=== PATIENT | female | born 1995 | race Caucasian/White ===

== ENCOUNTER 2024-05-31 14:25 | Outpatient (CLI) | payer OTHER, SELFPAY ==
--- OUTSIDE RECORDS SUMMARY | 2024-05-31 14:28 | XMS_ITS | Encounter Summary ---
Author Organization [facility] Address [address] [place] [address] Care Team Providers Care Stitcher Special Machine Name Role Phone Unavailable Primary Care Provider Unavailabl e Encounter Details Date Type Department Care Team (Late st Contact Info) Description 05/10/2024 Clinical Communication Department of Obstetrics and Gynecology in [place], [place] [address] [place] [address] Prescheduling, Provider Social History Tobacco Use Types Packs/Day Years Used Date Smoking Tobacco: Never Smokeless Tobacco: Never Dental Answer Date Recorded Dental: Regular Dentist Unknown 07/05/20 23 Comments No Sex and Gender Information Value Date Recorded Sex Assigned at Female 05/18/2024 8:53 PM CDT Legal Sex Female 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
--- OUTSIDE RECORDS SUMMARY | 2024-05-31 14:28 | XMS_ITS | Referral Summary ---
Author Organization [facility] Address [address] [place] [address] Care Team Providers Care Shared Services And Outsourcing Manager Name Role Phone Unavailable Primary Care Provider Unavailabl e Source Comments Patient records contain information from all sites at [facility]. For routine questions regarding patient records, call [phone] during business hours, M-F 8:00 AM - 5:00 PM Central Time. Record requests for emergency care only can be directed to [phone] at any time.[facility] Encounters Date Type Department Care Team Description 05/25/2024 11:00 AM CDT Routine Department of Obstetrics and Gynecology in [place], [place] [address] [place] [phone] Katty Lawrence M.D., Ph.D. Family History Congenital Heart Disease (Primary Dx); Abnormal Ultrasound Placental Low Lying 05/25/2024 9:33 AM CDT - 05/25/2024 11:59 PM CDT Hospital Encounter Department of Obstetrics and Gynecology in [place], [place] [address] [place] [phone] Jasmeet Oliver M.D. Supervision Of Other High Risk Pregnancies Unspecified Trimester (HCC) Discharge Disposition: Home or Self Care 05/11/2024 3:00 PM CDT Nurse Only Department of Obstetrics and Gynecology in [place], [place] [address] [place] [phone] Adrianna Pedraza R.N. 05/10/2024 Clinical Communication Department of Obstetrics and Gynecology in [place], [place] [address] [place] [phone] Prescheduling, Provider from Last 3 Months Allergies Active Allergy Reactions Criticality Noted Date Comments Codeine Other (see comments),Palpitations Medium 06/25/2022 high heart rate and passed out Medications omega-3 fatty acids 1,000 mg capsule Take 1,000 mg by mouth daily. Active [id number] [id number] 27 mg iron- 1 mg tablet Take 2 tablets by mouth daily. Active Vienva 0.1-20 mg-mcg per tablet Take 1 tablet by mouth daily. 05/25/20 Discontinued Social History Tobacco Use Types Packs/Day Years Used Date Smoking Tobacco: Never Smokeless Tobacco: Never Tobacco Cessation:Counseling Given: Not Answered Alcohol Use Standard Drinks/Week Comments Not Currently 0 (1 standard drink = 0.6 oz pur e alcohol) [facility] Utilities Answer Date Recorded In the past 12 months has e [employer], gas, oil, or water [employer] threatened to shut off services in your home? No 05/18/2024 Exercise Vital Sign Answer Date Recorde d On average, how many days pe r week do you engage in moderate to strenuous exercise (like a brisk walk)? 7 days 05/18/2024 On average, how many minutes do you engage in exercise at this level? 20 min 05/18/2024 Hunger Vital Sign Answer Date Recorded Within the past 12 months, y ou worried that your food would run out before you got the money to buy more. Never true 05/18/20 Within the past 12 months, t he food you bought just didn't last and you didn't have money to get more. Never true 05/18/2024 PRAPARE - Transportation Answer Date Re corded In the past 12 months, has l ack of transportation kept you from medical appointments or from getting medications? No 05/02 In the past 12 months, has l ack of transportation kept you from meetings, work, or from getting things needed for daily living? No 05/18/2024 Nutrition Answer Date Recorded On average, how many serving s of fruits and vegetables do you eat per day (serving size is equal to 1 cup or approximately the size of a tennis ball)? 0-2 05/18/2024 Dental Answer Date Recorded Dental: Regular Dentist No 05/18/20 Employment Answer Date Recorded Employment status Unemployed/not in th e paid workforce and NOT seeking employment 05/18/2024 Housing Stability Answer Date Recorded What is your living situation today? 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 Gender Identity Female 05/18/2024 8:53 PM CDT Sexual Orientation Straight 05/18/2024 8: 53 PM CDT Last Filed Vital Signs Vital Sign Reading Time Taken Comments Blood Pressure 128/80 05/25/2024 11:02 AM CDT Pulse 94 05/25/2024 11:02 AM CDT Temperature 36.3 ??C (97.3 ??F) 05/25/2024 11:02 AM C DT Respiratory Rate 16 07/05/2023 9:28 AM TRAINING AND DOCUMENTATION SPECIALIST Oxygen Saturation 99% 05/25/2024 11:02 AM CDT Inhaled Oxygen Concentration - - Weight 77 kg (169 lb 12.1 oz) 05/25/2024 11:02 A M CDT Height - - Body Mass Index - - Plan of Treatment Not on file Procedures Procedure Name Priority Date/Time Associated Diagnosis Comments US OB ADVANCED LEVEL PERAZA RAD - Routine (most inpatients and all outpatients) 05/25/2024 11:03 AM CDT Supervision Of Other High Risk Pregnancies Unspecified Trimester (HCC) from Last 3 Months Results * US OB Advanced Level Peraza (05/25/2024 11:03 AM CDT) Anatomical Region Laterality Modality Body, Ultrasound OB RST LOS, Ultrasound ARZ LOS N/A Ultrasound Narrative 05/25/2024 11:27 AM CDT CLEMENTINE HARPER OB Exam, 05/25/2024 EXAM INFORMATION Patient Name: ??CLEMENTINE HARPER : ??1995 Age: ??29 yrs Sex: ??Female Ref Phys: ??JASMEET OLIVER Exam Date: 05/25/2024 Procedure: US OB ADVANCED LEVEL PERAZA Exam Site: [facility] OB #1 Plurality: 1 OBHx: [G:(1)] ?F Trm:() Pre:() C-Sec:() Ab-I:() Ab-S:() Ect:() Multi:() Teagan:() INDICATIONS FOR SONOGRAPHY Anatomic Survey family Hx congenital heart disease IMPRESSION 1. Peraza . Bilateral choroid plexus cyst. No other abnormalities identified. Specifically, the hands were well seen and normal. Normal appearance of the heart. In the setting of a low risk NIPT, this is likely a normal variant and no specific follow-up is recommended. 2. Posterior low-lying placenta 1.1 cm from the internal os. Follow-up including transvaginal imaging is recommended between 28 and 32 weeks gestation. MEASUREMENTS ??steff ??wks [+/-] (Range) % ?? BPD: 4.58 cm ?? 19w6d ??[+/-1.73] ??(3.89 - 5.07) 62% FL: ??2.96 cm ?? 19w1d ??[+/-1.80] ??(2.56 - 3.73) 27% HC: ??16.56 cm ?? 19w2d ??[+/-1.48] ??(15.18 - 19.10) 28% AC: ??14.57 cm ?? 19w6d ??[+/-2.06] ??(11.76 - 17.01) 56% HL: ??2.85 cm ?? 19w0d ? (2.41 - 3.41) 44% TCD: 2.05 cm ?? 20w2d ??[+/-1.80] ??(1.80 - 2.20) 67% CI: ??79.1 ?(73.14 - 85.32) 49% NF: ??3.25 mm ? Cisterna Magna: 0.45 cm ? RATIOS ??(Range) % ?? HC/AC: 1.14 ?(1.09 - 1.26) 28% ?? FL/BPD: 0.65 ? FL/AC: 0.20 ? LONG BONES SURVEY ??cm ??wks [+/-] (Range) % ?? Humerus: 2.85 cm ?? 19w0d ? (2.41 - 3.41) 44% Ulna: ?? 2.59 cm ? Radius: 2.39 cm ? Femur: 2.96 cm ?? 19w1d ??[+/-1.80] ??(2.56 - 3.73) 27% Tibia: 2.69 cm ? Fibula: 2.61 cm ? COMPUTATIONS GA: ?? 19w4d [+/-1.40] Method: ??MARIAH MARIAH: ??10/15/2024 Sono GA: ??19w2d [+/-1.40] Method: ?? BPD, HC, AC, FL Weight: ??323 gms. ??0 lb 11 oz. ??68% Method: ??BPD, HC, AC, FL OBSERVATIONS Amniotic Fluid Fluid Volume: ??Normal Placenta: ??Placenta is Posterior. ??There is no evidence of a placenta previa. Presentation: ?Transverse head maternal right Size: ?Normal for dates Growth: ??Within normal limits. FHR: ??147 bpm Sex: ??Male ANATOMY Normal: Sag and Trans Cervical spine, Sag and Trans Thoracic spine, Sag and Trans Lumbar spine, Sag and Trans Sacral spine, Cerebellum, Vermis, Cisterna magna, Cerebral ventricle, Nuchal thickness, CSP, Midline falx, Palate, Maxilla, Mandible, Tongue, 4 chamber heart, Interventricular septum, Situs, RVOT, LVOT, 3VV, 3VT, Aortic arch, Ductal arch, SVC/IVC, Pulmonary veins, Chest/Heart/lungs, Diaphragm, Anterior abdominal wall, Abdominal cord insertion, Placental cord insert , 3 vessel cord, Stomach, Kidneys (coronal and trans), Renal arteries, Bladder, Face, Upper lip/nose, Profile/Nasal Bone, Orbits/lens, Upper extremities, Lower extremities, Hands, Feet See Comment: Choroid plexus COMMENTS Transabdominal ultrasound was performed. Anatomy Scan Peraza . ??The placenta is without evidence of previa. The cervix is long and closed. The amniotic fluid appears normal. The adnexae appear normal. NIPT -low risk Bilateral BOILER MECHANIC's (right 6.8 x 5.3mm) Posterior low lying placenta 1.12cm from the internal os of the cervix. Preliminary Read by Jaimee Pettit, R.Rita.M.S. on 05/25/2024 11:01:14 AM. Cellulose Insulation Helper: ??Jaimee Pettit, Yasir.M.S. Thank You For This Referral Procedure Note Daisha Moreno M.D. - 05/25/2024 CLEMENTINE HARPER OB Exam, 05/25/2024 EXAM INFORMATION Patient Name: CLEMENTINE HARPER : 1995 Age: 29 yrs Sex: Female Ref Phys: JASMEET OLIVER Exam Date: 05/25/2024 Procedure: US OB ADVANCED LEVEL PERAZA Exam Site: [facility] OB #1 Plurality: 1 OBHx: [G:(1)] F Trm:() Pre:() C-Sec:() Ab-I:() Ab-S:() Ect:() Multi:() Teagan:() INDICATIONS FOR SONOGRAPHY Anatomic Survey family Hx congenital heart disease IMPRESSION 1. Peraza . Bilateral choroid plexus cyst. No other fetalabnormalities identified. Specifically, the hands were well seen andnormal. Normal appearance of the heart. In the setting of a low risk NIPT,this is likely a normal variant and no specific follow-up is recommended. 2. Posterior low-lying placenta 1.1 cm from the internal os. Follow-upincluding transvaginal imaging is recommended between 28 and 32 weeksgestation. MEASUREMENTS steff wks [+/-] (Range) % BPD: 4.58 cm 19w6d [+/-1.73] (3.89 - 5.07) 62% FL: 2.96 cm 19w1d [+/-1.80] (2.56 - 3.73) 27% HC: 16.56 cm 19w2d [+/-1.48] (15.18 - 19.10) 28% AC: 14.57 cm 19w6d [+/-2.06] (11.76 - 17.01) 56% HL: 2.85 cm 19w0d (2.41 - 3.41) 44% TCD: 2.05 cm 20w2d [+/-1.80] (1.80 - 2.20) 67% CI: 79.1 (73.14 - 85.32) 49% NF: 3.25 mm Cisterna Magna: 0.45 cm RATIOS (Range) % HC/AC: 1.14 (1.09 - 1.26) 28% FL/BPD: 0.65 FL/AC: 0.20 LONG BONES SURVEY cm wks [+/-] (Range) % Humerus: 2.85 cm 19w0d (2.41 - 3.41) 44% Ulna: 2.59 cm Radius: 2.39 cm Femur: 2.96 cm 19w1d [+/-1.80] (2.56 - 3.73) 27% Tibia: 2.69 cm Fibula: 2.61 cm COMPUTATIONS GA: 19w4d [+/-1.40] Method: MARIAH MARIAH: 10/15/2024 Sono GA: 19w2d [+/-1.40] Method: BPD, HC, AC, FL Weight: 323 gms. 0 lb 11 oz. 68% Method: BPD, HC, AC, FL OBSERVATIONS Amniotic Fluid Fluid Volume: Normal Placenta: Placenta is Posterior. There is no evidence of a placentaprevia. Presentation: Transverse head maternal right Size: Normal for dates Growth: Within normal limits. FHR: 147 bpm Sex: Male ANATOMY Normal: Sag and Trans Cervical spine, Sag and Trans Thoracic spine, Sagand Trans Lumbar spine, Sag and Trans Sacral spine, Cerebellum, Vermis,Cisterna magna, Cerebral ventricle, Nuchal thickness, CSP, Midline falx,Palate, Maxilla, Mandible, Tongue, 4 chamber heart, Interventricular septum, Situs, RVOT, LVOT, 3VV, 3VT,Aortic arch, Ductal arch, SVC/IVC, Pulmonary veins, Chest/Heart/lungs,Diaphragm, Anterior abdominal wall, Abdominal cord insertion, Placentalcord insert , 3 vessel cord, Stomach, Kidneys (coronal and trans), Renal arteries, Bladder, Face, Upperlip/nose, Profile/Nasal Bone, Orbits/lens, Upper extremities, Lowerextremities, Hands, Feet See Comment: Choroid plexus COMMENTS Transabdominal ultrasound was performed. Anatomy Scan Peraza . The placenta is without evidence of previa. Thecervix is long and closed. The amniotic fluid appears normal. The adnexaeappear normal. NIPT -low risk Bilateral BOILER MECHANIC's (right 6.8 x 5.3mm) Posterior low lying placenta 1.12cm from the internal os of thecervix. Preliminary Read by Jaimee Pettit R.D.M.S. on 05/25/2024 11:01:14AM. Cellulose Insulation Helper: Jaimee Pettit R.D.MaRhulSRahul Thank You For This Referral us Jasmeet Oliver M.D. IMG OB US PROCEDURES Final Result from Last 3 Months Insurance [id number] [facility] [id number] [place] [address]
--- OUTSIDE RECORDS SUMMARY | 2024-05-31 14:28 | XMS_ITS | Encounter Summary ---
Author Organization [facility] Address [address] [place] [address] Care Team Providers Care Welder Fabricator Name Role Phone Unavailable Primary Care Provider Unavailabl e Reason for Referral * Outpatient (Routine) - Authorized Specialty Diagnoses / Procedures Referred By Contac t Referred To Contact Diagnoses Supervision Of Other High Risk Pregnancies Unspecified Trimester (HCC) Procedures Echo Jasmeet Oliver M.D. [address] [place] [phone] Phone: tel: fax: [facility] Referral ID Status Reason Start Date Expiration Date V isits Requested Visits Authorized [id number] Authorized 05/11/2024 05/11/2025 1 1 * Outpatient (Routine) - Authorized Specialty Diagnoses / Procedures Referred By Ed gardner Referred To Contact Pediatric Cardiology Diagnoses Supervision Of Other High Risk Pregnancies Unspecified Trimester (HCC) Jasmeet Oliver M.D. [address] [place] [phone] Phone: tel: fax: [facility] Referral ID Status Reason Start Date Expiration Date V isits Requested Visits Authorized [id number] Authorized 05/11/2024 11/10/2025 1 1 Encounter Details Date Type Department Care Team (Late st Contact Info) Description 05/11/2024 3:00 PM CDT Nurse Only Department of Obstetrics and Gynecology in [place], [place] [address] [place] [phone] Adrianna Pedraza R.N. 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 - 05/11/2024 3:00 PM CDT A chart review was completed with Clementine Mckinnon. She is being referred by Dr. Fernandez in [place] for katiuska heart maternal murmur cousin with Behzad. Using the [facility] Indication to be Seen guideline, the timeframe we would like her to be seen is between 05/22 and 05/29. MFM pre-visit orders: Additional appointments were ordered as follows: Adv level and Echo Peds Card. These recommendations were discussed with the patient. Clementine Mckinnon was informed that the [facility] team will be reaching out to schedule her appointments inthe near future. She verbalized understanding and denied any further questions. Adrianna Pedraza R.N. documented in this encounter Plan of Treatment Scheduled Orders Name Type Priority Associated Diagnoses Orde r Schedule Echo Echocardiography Routine Supervision Of Other High Risk Pregnancies Unspecified Trimester (HCC) Expected: 06/15/2024, Expires: 08/11/2025 Scheduled Referrals Name Type Priority Associated Diagnoses Orde r Schedule Pediatric Cardiology - clinic consult (clinic) Outpatient Referral Routine Supervision Of Other High Risk Pregnancies Unspecified Trimester (HCC) Expected: 06/15/2024, Expires: 08/11/2025 documented as of this encounter Results * US OB Advanced Level Peraza (05/25/2024 11:03 AM CDT) Anatomical Region Laterality Modality Body, Ultrasound OB RST LOS, Ultrasound ARZ LOS N/A Ultrasound Narrative 05/25/2024 11:27 AM CDT CLEMENTINE HARPER OB Exam, 05/25/2024 EXAM INFORMATION Patient Name: ??CLEMENTINE HARPER : ??1995 Age: ??29 yrs Sex: ??Female Ref Phys: ??JASMEET OLIVER Exam Date: 05/25/2024 Procedure: US OB ADVANCED LEVEL PERAZA Exam Site: [facility] OB #1 Plurality: 1 OBHx: [G:(1)] ?F [...] adnexae appear normal. NIPT -low risk Bilateral GENERAL FARMER's (right 6.8 x 5.3mm) Posterior low lying placenta 1.12cm from the internal os of the cervix. Preliminary Read by Jaimee Pettit, R.D.M.S. on 05/25/2024 11:01:14 AM. License Clerk: ??Jaimee Pettit, RAshley.M.S. Thank You For This Referral Procedure Note Daisha Moreno M.D. - 05/25/2024 CLEMENTINE HARPER OB Exam, 05/25/2024 EXAM INFORMATION Patient Name: CLEMENTINE HARPER : 1995 Age: 29 yrs Sex: Female Ref Phys: JASMEET OLIVER Exam Date: 05/25/2024 Procedure: US OB ADVANCED LEVEL PERAZA Exam Site: [facility] OB #1 Plurality: 1 OBHx: [G:(1)] F [...] The adnexaeappear normal. NIPT -low risk Bilateral GENERAL FARMER's (right 6.8 x 5.3mm) Posterior low lying placenta 1.12cm from the internal os of thecervix. Preliminary Read by Jaimee Pettit R.D.M.S. on 05/25/2024 11:01:14AM. License Clerk: Jaimee Pettit R.D.M.S. Thank You For This Referral us Jasmeet Oliver M.D. IMG OB US PROCEDURES Final Result documented in this encounter Visit Diagnoses Diagnosis Supervision Of Other High Risk Pregnancies Unspecified Trimester (HCC)- Primary Supervision Of Other High Risk Pregnancies Unspecified Trimester (HCC) documented in this encounter
--- OUTSIDE RECORDS SUMMARY | 2024-05-31 14:28 | XMS_ITS | Encounter Summary ---
Author Organization [facility] Address [address] [place] [address] Care Team Providers Care Surfacer Name Role Phone Unavailable Primary Care Provider Unavailabl e Reason for Visit * Reason Comments Routine Visit MFM * Appointment Request (Routine) - Authorized Specialty Diagnoses / Procedures Referred By Contlinda t Referred To Contact Maternal and Medicine Diagnoses Abnormality Affecting Management Rossana Fernandez, P.A.-C. [address] [place] [address] Phone: tel: fax: Referral ID Status Reason Start Date Expiration Date V isits Requested Visits Authorized [id number] Authorized 05/10/2024 05/10/2025 2 2 Encounter Details Date Type Department Care Team (Latest Contact Info) Description 05/25/2024 11:00 AM CDT Routine Department of Obstetrics and Gynecology in [place], [place] [address] [place] [phone] Katty Lawrence M.D., Ph.D. [address] [place] [address] Family History Congenital Heart Disease (Primary Dx); Abnormal Ultrasound Placental Low Lying Social History Tobacco Use Types Packs/Day Years Used Date Smoking Tobacco: Never Smokeless Tobacco: Never Alcohol Use Standard Drinks/Week Comments Not Currently 0 (1 standard drink = 0.6 oz pur e alcohol) [facility] Utilities Answer Date Recorded In the past 12 months has [employer], gas, oil, or water company threatened to shut off services in your [...] your living situation today? 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 - 05/25/2024 11:00 AM CDT MATERNAL MEDICINE CONSULTATION SUBJECTIVE Clementine Polanco is a 29 y.o. at 19w4d who presents for MFM consultation secondary to history ofcongenital heart disease. Patient's last menstrual period was 01/09/2024. Estimated Date of Delivery: 10/15/24 by LMP consistent with 7 week ultrasound. She is referred by Rossana Fernandez P.A.-C. Clementine presents today with her , Reed. They recently located to [place] from [place]. They are receiving care in [place]. BRIEF HISTORY Clementine reports that she had a heart murmur diagnosed when she was a child and was followed untilshe was around 12 years old when she was told that it normalized. Sounds like possible small VSD orPFO that closed spontaneously and was followed by reportedly [place]. Because of this history, she was referred for MFM consultation and is scheduled for a echo in a couple weeks. She has had cell free DNA screening performed, which resulted as low-risk. She had a first trimester ultrasound that showed a normal nuchal translucency (1.3 mm at 12w5d). Complicated By: Maternal heart issue ? Now resolved Fetus: bilateral choroid plexus cysts Low-lying placenta (at 19w4d); 1.2 cm from internal os OBJECTIVE Vitals: 05/25/24 1102 BP: 128/80 Pulse: 94 Temp: 36.3 ??C SpO2: 99% Ultrasound Today: [place] . Bilateral choroid plexus cyst. No other abnormalities identified. Specifically, the hands were well seen and normal. Normal appearance of the heart. In the setting of a lowrisk NIPT, this is likely a normal variant and no specific follow-up is recommended. Posterior low-lying placenta 1.1 cm from the internal os. Follow-up including transvaginal imaging is recommended between 28 and 32 weeks gestation. ASSESSMENT / PLAN Discussion Today: Today we reviewed her history, the ultrasound findings, and the recommended plan of care. Specific discussion about: Choroid Plexus Cysts: The choroid plexus, located in the lateral ventricle of the brain, is the area of the brain that makes cerebrospinal fluid. A choroid plexus cyst is a small fluid-filled structure within the choroid that can be seen on ultrasound. Choroid plexus cysts may be single, multiple, unilateral or bilateral. An isolated choroid plexus cyst (s) can be identified on routine ultrasound and are seen in 1-2% of normal fetuses in the second trimester, equally in males and females. More than 90% resolve, typically by 28 weeks. A choroid plexus cyst is not considered a structural of functional brain abnormality. Studies show no differences in neurodevelopmental outcomes in eup loid children who had a diagnosis of choroid plexus cysts. Choroid plexus cysts may be associated with trisomy 18. They are seen in 30-50% of fetuses with trisomy 18. However, multiple structural anomalies are also typically seen (heart defects, clenched hands, talipes deformity of the feet, growth restriction, and polyhydramnios). When other abnormalitiesare seen, the probability of trisomy 18 increases to approximately 37%. When isolated, the likelihood of trisomy 18 is extremely low. In women who screen negative for trisomy 18 and in whom no other structural anomalies are seen on adetailed ultrasound, no additional genetic testing is required. Follow-up ultrasounds are also not indicated. Low Lying Placenta: A low-lying placenta refers to a placental edge less than 2 cm from the internal cervical os. This becomes an issue if near delivery time. If the placenta is low-lying, studies have suggested that the distance from the os is an important predictor of a successful vaginal delivery. If 10 mm or less, there is a higher risk of vaginal bleeding leading to delivery. If betw een 10-20mm, the success of a vaginal delivery is higher. At this point in the , I am not concerned about the low-lying placenta because it will likely resolve. We also discussed ???pelvic rest?? , which I do not necessarily think is necessary at this time. The usual recommendation is to re-assess the placental location around 28-32 weeks GA. Possible Maternal Congenital Heart Abnormality: Because we are uncertain about her diagnosis, and it appeared to spontaneously resolve, I do not think a echo is necessary - particularly with normal cardiac views on advanced level ultrasound today. I offered to have the echo cancelled, which they did opt for. Plan/Recommendations In Addition to Routine Care: History of maternal murmur: Continue to attempt to retrieve records from [place] Consider maternal echocardiogram (not urgent) echo not necessary (since maternal issue does not seem significant) - normal advanced level today Low-Lying Placenta: Repeat ultrasound to assess placental location around 32 weeks (earlier if needed). Can be done locally Care: Continue care in [place] Return to [facility] as needed Patient was seen with Irma Herring RN. Approximately 40 minutes were spent in the care of the patient. Katty Lawrence M.D., Ph.D. Maternal- Medicine documented in this encounter Plan of Treatment Not on file documented as of this encounter Visit Diagnoses Diagnosis Family History Congenital Heart Disease- Primary Abnormal Ultrasound Placental Low Lying documented in this encounter
--- OUTSIDE RECORDS SUMMARY | 2024-05-31 14:28 | XMS_ITS | Clinical Summary ---
Author Organization [facility] Address [address] [place] [address] Care Team Providers Care Oracle Dba Name Role Phone Unavailable Primary Care Provider Unavailabl e Source Comments Patient records contain information from all sites at [facility]. For routine questions regarding patient records, call [phone] during business hours, M-F 8:00 AM - 5:00 PM Central Time. Record requests for emergency care only can be directed to [phone] at any time.[facility] Allergies Active Allergy Reactions Criticality Noted Date Comments Codeine Other (see comments),Palpitations Medium 06/25/2022 high heart rate and passed out Medications omega-3 fatty acids 1,000 mg capsule Take 1,000 mg by mouth daily. Active [id number] n-FA 27 mg iron- 1 mg tablet Take 2 tablets by mouth daily. Active Vienva 0.1-20 mg-mcg per tablet Take 1 tablet by mouth daily. 05/25/20 Discontinued Encounters Date Type Department Care Team Description 05/25/2024 11:00 AM CDT Routine Department of Obstetrics and Gynecology in [place], [place] [address] [place] [address] Katty Lawrence M.D., Ph.D. Family History Congenital Heart Disease (Primary Dx); Abnormal Ultrasound Placental Low Lying 05/25/2024 9:33 AM CDT - 05/25/2024 11:59 PM CDT Hospital Encounter Department of Obstetrics and Gynecology in [place], [place] [address] [place] [address] Jasmeet Oliver M.D. Supervision Of Other High Risk Pregnancies Unspecified Trimester (HCC) Discharge Disposition: Home or Self Care 05/11/2024 3:00 PM CDT Nurse Only Department of Obstetrics and Gynecology in [place], [place] [address] [place] [address] Adrianna Pedraza R.N. 05/10/2024 Clinical Communication Department of Obstetrics and Gynecology in [place], [place] [address] [place] [address] Prescheduling, Provider from Last 3 Months Family History Medical History Relation Name Comments No Known Problems Brother Hypertension Father Cancer Maternal Grandfather Esophag eal and Colon GI problems Maternal Grandmother No Known Problems Mother Crohn disease Paternal Grandfather Depression Paternal Grandmother Suicide Relation Name Status Comments Brother Alive Father Alive Maternal Grandfather Maternal Grandmother Alive Mother Alive Paternal Grandfather Alive Paternal Grandmother Social History Tobacco Use Types Packs/Day Years Used Date Smoking Tobacco: Never Smokeless Tobacco: Never Tobacco Cessation:Counseling Given: Not Answered Alcohol Use Standard Drinks/Week Comments Not Currently 0 (1 standard drink = 0.6 oz pur e alcohol) [facility] [employer] Answer Date Recorded In the past 12 months has th e [employer], gas, oil, or water [employer] threatened to shut off services in your [...] money to buy more. Never true 05/18/20 24 Within the past 12 months, t he [...] Answer Date Recorded Employment status Unemployed/not in e paid workforce and NOT seeking employment 05/18/2024 Housing Stability Answer Date Recorded What is your living situation today? 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 Gender Identity Female 05/18/2024 8:53 PM CDT Sexual Orientation Straight 05/18/2024 8: 53 PM CDT Last Filed Vital Signs Vital Sign Reading Time Taken Comments Blood Pressure 128/80 05/25/2024 11:02 AM CDT Pulse 94 05/25/2024 11:02 AM CDT Temperature 36.3 ??C (97.3 ??F) 05/25/2024 11:02 AM C DT Respiratory Rate 16 07/05/2023 9:28 AM SENIOR CONSUMER INSIGHTS CONSULTANT Oxygen Saturation 99% 05/25/2024 11:02 AM CDT Inhaled Oxygen Concentration - - Weight 77 kg (169 lb 12.1 oz) 05/25/2024 11:02 A M CDT Height - - Body Mass Index - - Plan of Treatment Health Maintenance Due Date Last Done Comments HIV Screening 1995 Hepatitis C Screening 1995 DTaP,Tdap,and Td Vaccines (7 - Tdap) 03/09/2018 03/09/2008, 04/30/2000, 02/13/1998, Additional history exists Depression Screening (Annual PHQ-2) 08/02/2023 COVID-19 Vaccine (1 - 2023- season) 2024 Influenza Vaccine (#1) 2024 07/05/2020 RSV vaccine - (32-36 weeks) or 60+ years (1 - Risk 1-dose series) 08/20/2024 Cervical/Vaginal Cancer Screening 03/03/2027 03/03/2024, 03/03/2024 Hepatitis B Vaccines Completed 03/27/2022, 05/16/20 21 HPV Vaccines Aged Out No longer eligi ble based on patient's age to complete this topic IPV Vaccines Aged Out No longer eligi ble based on patient's age to complete this topic Pneumococcal vaccine (0-64 years) Aged Out No longer eligible based on patient's age to complete this topic Procedures Procedure Name Priority Date/Time Associated Diagnosis [...] OB Exam, 05/25/2024 EXAM INFORMATION Patient Name: ??LEROY CLEMENTINE : ??1995 Age: ??29 yrs Sex: ??Female Ref Phys: ??JASMEET OLIVER Exam Date: 05/25/2024 Procedure: US OB ADVANCED LEVEL PERAZA Exam Site: [facility] OB #1 Plurality: 1 OBHx: [G:(1)] [...] adnexae appear normal. NIPT -low risk Bilateral FORMING MILL OPERATOR's (right 6.8 x 5.3mm) Posterior low lying placenta 1.12cm from the internal os of the cervix. Preliminary Read by Jaimee Pettit R.D.M.SRahul on 05/25/2024 11:01:14 AM. Health And Wellness Director: ??Jaimee Pettit R.D.M.S. Thank You For This Referral Procedure Note Daisha Moreno M.D. - 05/25/2024 CLEMENTINE HARPER OB Exam, 05/25/2024 EXAM INFORMATION Patient Name: CLEMENTINE HARPER : 1995 Age: 29 yrs Sex: Female Ref Phys: JASMEET H DG Exam Date: 05/25/2024 Procedure: US OB ADVANCED LEVEL PERAZA Exam Site: [facility] OB #1 Plurality: 1 OBHx: [G:(1)] [...] The adnexaeappear normal. NIPT -low risk Bilateral FORMING MILL OPERATOR's (right 6.8 x 5.3mm) Posterior low lying placenta 1.12cm from the internal os of thecervix. Preliminary Read by Jaimee Pettit R.D.M.S. on 05/25/2024 11:01:14AM. Health And Wellness Director: Jaimee Pettit R.D.MRahulSRahul Thank You For This Referral us Jasmeet Oliver M.D. IMG OB US PROCEDURES Final Result from Last 3 Months Insurance MEDICA
--- OUTSIDE RECORDS SUMMARY | 2024-05-31 14:28 | XMS_ITS ---
Author Organization [facility] Address [address] [place] [address] Care Team Providers Care Airport Ramp Attendant Name Role Phone Unavailable Unavailable Unavailable Surgery Details Not on file Complications Check Surgery Details section. Procedure Estimated Blood Loss Check Surgery Details section. Procedure Findings Check Surgery Details section. Procedure Specimens Taken Check Surgery Details section.
--- OUTSIDE RECORDS SUMMARY | 2024-05-31 14:28 | XMS_ITS | Encounter Summary ---
Author Organization [facility] Address [address] [place] [address] Care Team Providers Care Pet Adoption Counselor Name Role Phone Unavailable Primary Care Provider Unavailabl e Encounter Details Date Type Department Care Team (Latest Contact Info) Description 05/25/2024 9:33 AM CDT - 05/25/2024 11:59 PM CDT Hospital Encounter Department of Obstetrics and Gynecology in [place], [place] [address] [place] [address] Jasmete Oliver M.D. [address] [place] [address] Supervision Of Other High Risk Pregnancies Unspecified Trimester (HCC) Discharge Disposition: Home or Self Care Social History Tobacco Use Types Packs/Day Years Used Date Smoking Tobacco: Never Smokeless Tobacco: Never Alcohol Use Standard Drinks/Week Comments Not Currently 0 (1 standard drink = 0.6 oz pur e alcohol) [facility] Utilities Answer Date Recorded In the past 12 months has [employer], oil, or water [employer] threatened to shut off services in your [...] your living situation today? 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 [id number] A 27 mg iron- 1 mg tablet Take 2 tablets by mouth daily. documented as of this encounter Plan of Treatment Not on file documented as of this encounter Procedures Procedure Name Priority Date/Time Associated Diagnosis Comments US OB ADVANCED LEVEL PERAZA RAD - Routine (most inpatients and all outpatients) 05/25/2024 11:03 AM CDT Supervision Of Other High Risk Pregnancies Unspecified Trimester (HCC) documented in this encounter Results * US OB Advanced Level Peraza (05/25/2024 11:03 AM CDT) Anatomical Region Laterality Modality Body, Ultrasound OB RST LOS, Ultrasound ARZ LOS N/A Ultrasound Narrative 05/25/2024 11:27 AM CDT CLEMENTINE HARPER OB Exam, 05/25/2024 EXAM INFORMATION Patient Name: ??CLEMENTINE HARPER : ??1995 Age: ??29 yrs Sex: ??Female Ref Phys: ??JASMEET OLIVER Exam Date: 05/25/2024 Procedure: OB ADVANCED LEVEL PERAZA Exam Site: [facility] OB #1 Plurality: 1 OBHx: [G:(1)] ?F [...] adnexae appear normal. NIPT -low risk Bilateral PAYING TELLER's (right 6.8 x 5.3mm) Posterior low lying placenta 1.12cm from the internal os of the cervix. Preliminary Read by Jaimee Pettit R.D.M.SRahul on 05/25/2024 11:01:14 AM. Quality Control Inspector Heading: ??Jaimee Pettit R.D.MRahulSRahul Thank You For This Referral Procedure Note Daisha Moreno M.D. - 05/25/2024 CLEMENTINE HARPER OB Exam, 05/25/2024 EXAM INFORMATION Patient Name: CLEMENTINE HARPER : 1995 Age: 29 yrs Sex: Female Ref Phys: JASMEET OLIVER Exam Date: 05/25/2024 Procedure: US OB ADVANCED LEVEL PERAZA Exam Site: [facility] OB #1 Plurality: 1 OBHx: [G:(1)] F [...] The adnexaeappear normal. NIPT -low risk Bilateral PAYING TELLER's (right 6.8 x 5.3mm) Posterior low lying placenta 1.12cm from the internal os of thecervix. Preliminary Read by Jaimee Pettit R.D.M.S. on 05/25/2024 11:01:14AM. Quality Control Inspector Heading: Jaimee Pettit R.D.M.S. Thank You For This Referral us Jasmeet Oliver M.D. IMG OB US PROCEDURES Final Result documented in this encounter Visit Diagnoses Diagnosis Supervision Of Other High Risk Pregnancies Unspecified Trimester (HCC) documented in this encounter
== END 2024-05-31 14:26 | disposition home or self-care (01) ==
LOC: NFLDREF 14:26
PROVIDERS: Visit Provider Obstetrics & Gynecology
DX: Z34.92 Encounter for supervision of normal pregnancy, unspecified, second trimester (principal); Z3A.20 20 weeks gestation of pregnancy
CPT/HCPCS: 87086

== ENCOUNTER 2024-07-24 12:50 | Outpatient (CLI) | payer OTHER, SELFPAY | END 2024-07-24 12:51 | disposition home or self-care (01) | LOC: NFLDREF 07-25 02:13 | PROVIDERS: PCP Obstetrics & Gynecology; Visit Provider Obstetrics & Gynecology | DX: O44.43 Low lying placenta NOS or without hemorrhage, third trimester (principal); Z3A.28 28 weeks gestation of pregnancy | CPT/HCPCS: 86592; 86850; 86870; 86880; 86900; 86901; 86905; 86906 ==

== ENCOUNTER 2024-07-24 12:56 | Outpatient (CLI) | payer OTHER, SELFPAY ==
--- OUTSIDE RECORDS SUMMARY | 2024-07-21 13:46 | XMS_ITS | Continuity of Care Document ---
Author Organization [facility] ospital Address [address] [place] [address]- Care Team Providers Care Credit Controller Name Role Phone Physician, Karla Primary Care Physician Unavailable Encounter Date(s): 04/21/24 - 04/21/24 [place] [id number] Encounter Diagnosis Acute urinary tract infection(Discharge Diagnosis) - 04/21/24 Discharge Disposition: Home or Self Care Attending Physician: Antonio ROLON, [place] Bales Referring Physician: Physician , SelfReferral Allergies, Adverse Reactions, Alerts Substance Criticality Severity Reaction Reaction Severity Status codeine Active Assessment and Plan Extracted from: Title:ED Patient Summary Author:Cinthia RUSSELL, Pam Watkins Date:04/21/24 [facility] Emergency Department [address] [place] [address] [phone] Discharge Instructions (Patient) Don't forget to register for [employer] by calling [phone] Name: MARIA D HARPER Current Date: 21-Apr-2024 14:36:39 [place] : 1995 Reason for Visit: ED Checkout Date/Time: 04/21/24 01:34:00 PM [facility] Patient Address: [address] [place] [phone] Patient Primary Care Provider: Name: Physician Karla Phone: Emergency Department Providers: Medication Information: [facility] ED Physicians provided you with [...] with your physician(s) and pharmacist. New Medications [facility], [address] [place], [place] [id number], [phone] nitrofurantoin (nitrofurantoin macrocrystals-monohydrate 100 mg oral capsule) 1 cap Oral 2 times a day for 7 Days. Refills: 0. Last Dose: [facility], [address], [place] [id number], [phone] nitrofurantoin (nitrofurantoin macrocrystals-monohydrate 100 mg oral capsule) 1 cap Oral 2 times a day for 7 Days. Refills: 0. [facility] would like to thank you [...] education materials: Follow-up Instructions: With: Address: When: Follow-up with your OB provider as soon as you return home, return to the emergency department for any acute changes or worsening in your symptoms. In 1 week 28-Apr-2024 Comments: Call for follow up appointment Return to ED if symptoms worsen Patient Education Materials: Urinary Tract Infection, Adult Urinary Tract Infection, Adult A urinary tract infection (UTI) is an infection of any part of the urinary tract, which includes the kidneys, ureters, bladder, and urethra. These organs make, store, and get rid of urine in the body. An upper UTI affects the ureters and kidneys (pyelonephritis), and a lower UTI affects the bladder (cystitis) and urethra (urethritis). What are the causes? Most urinary tract infections are caused by bacteria in your genital area, around the entrance to your urinary tract (urethra). These bacteria grow and cause irritation and inflammation of your urinary tract. What increases the risk? You are more likely to develop this condition if: You have a urinary catheter that stays in place (indwelling). You are not able to control when you urinate or have a bowel movement (you have incontinence). You are female. You have certain genes that increase your risk (genetics). You are sexually active. You are female and use a spermicide or diaphragm for control. You take antibiotic medicines. You have a situation that causes your flow of urine to slow down, such as: An enlarged prostate. Blockage in your urethra (stricture). A kidney stone. A neurogenic bladder. Not getting enough to drink, or not urinating often. You have certain medical conditions, such as: Diabetes. A weak disease-fighting system (immunesystem). Estrogen deficiency. Sickle cell disease. Gout. Spinal cord injury. . What are the signs or symptoms? Symptoms of this condition include: Needing to urinate right away (urgently). Frequent urination or passing small amounts of urine frequently. Pain or burning with urination. Blood in the urine. Urine that smells bad or unusual. Trouble urinating. Cloudy urine. Vaginal discharge, if you are female. Pain in the abdomen or the lower back. You may also have: Vomiting or a decreased appetite. Confusion. Irritability or tiredness. A fever. Diarrhea. Older adults may not have any symptoms until the infection has worsened. How is this diagnosed? This condition is diagnosed with a medical history and physical exam. You will also need to provide a urine sample to test your urine. Other tests may be done, including: Blood tests. Sexually transmitted disease (STD) testing. If you have had more than one UTI, a cystoscopy or imaging studies may be done to determine the cause of the infections. How is this treated? Treatment for this condition includes: Antibiotic medicine. Xsoi-fuq-swcvjqb medicines to treat discomfort. Drinking enough water to stay hydrated. If you have frequent infections or have other conditions such as a kidney stone, you may need to see a health care provider who specializes in the urinary tract (urologist). Some urinary tract infections that have worsened (sepsis) are treated in the hospital with IV antibiotics. Follow these instructions at home: Take mzdd-vgr-wmlrufb and prescription medicines only as told by your health care provider. If you were prescribed an antibiotic, take it as told by your health care provider. Do not stop taking the antibiotic even if you start to feel better. Drink enough fluid to keep your urine pale yellow. For most people, this is 6 1 0 glasses of water per day. Keep all follow-up visits as told by your health care provider. This is important. Make sure you: Empty your bladder often and completely. Do not hold urine for long periods of time. Empty your bladder after sex. Wipe from front to back after a bowel movement if you are female. Use each tissue one time when you wipe. Contact a health care provider if: Your symptoms do not get better after 1 2 days. Your symptoms go away and then return. Get help right away if you have: Severe pain in your back or your lower abdomen. A fever. Nausea or vomiting. Summary A urinary tract infection (UTI) is an infection of any part of the urinary tract, which includes the kidneys, ureters, bladder, and urethra. Most urinary tract infections are caused by bacteria in your genital area, around the entrance to your urinary tract (urethra). Treatment for this condition includes antibiotic medicines. If you were prescribed an antibiotic, take it as told by your health care provider. Do not stop taking the antibiotic even if you start to feel better. This information is not intended to replace advice given to you by your health care provider. Make sure you discuss any questions you have with your health care provider. Document Released: 04/28/2006 Document Revised: 09/13/2018 Document Reviewed: 06/08/2016 [employer] Interactive Patient Education 2019 [employer] Allergy Info: codeine Major Tests and Procedures: [...] Rate Peripheral Pulse Rate Blood Pressure / 90 / 90 Comment: Tobacco Smoke: Tobacco smoke can be harmful to your health, and second hand smoke can be harmful to those around you. If you currently smoke, or know someone that does, quitting is recommended. Avoid second-hand smoke from others. If you don t smoke, don t start. Please talk with your physician about different ways to stop smoking. [employer] Phone: Web: www.cancer.org [employer] [place] [employer] (ANALI) - for local mental health resources Phone: 2-312-438-ANALI Web: www.NAMIcitrus.org I, MARIA D HARPER, has been given the following list of follow-up instructions, prescriptions, and patient education materials, including teach back demonstration: Urinary Tract Infection, Adult New Medications [facility], [address] [place], [place] [id number], [phone] nitrofurantoin (nitrofurantoin macrocrystals-monohydrate 100 mg oral capsule) 1 cap Oral 2 times a day for 7 Days. Refills: 0. Last Dose: With: Address: When: Follow-up with your OB provider as soon as you return home, return to the emergency department for any acute changes or worsening in your symptoms. In 1 week 28-Apr-2024 Comments: Call for follow up appointment Return to ED if symptoms worsen Patient Signature 21-Apr-2024 14:36:39 Provider Signature 21-Apr-2024 14:36:39 Extracted from: Title:ED Clinical Summary Author:Evonne Vicente RN Date:04/21/24 [facility] Emergency Department Discharge Instructions (Clinical) [address] [place] [phone] ext [phone] PERSON INFORMATION Name: MARIA D HARPER : 1995 Age: 29 Years Address and Phone: [address] [place] [phone] ED Checkout Date/Time: 04/21/24 01:34:00 PM [facility] DISCHARGE INFORMATION Date of Discharge: 21-Apr-2024 13:06:00 Discharge Diagnosis: Acute urinary tract infection PROVIDERS Primary Care Provider: Name: Physician , Karla Phone: Emergency Department Providers: Provider Role Assigned Unassigned Gater CHARLI Kaylee A ED MLP 21-Apr-2024 10:36:42 Rosamaria Black ED Nurse 21-Apr-2024 10:37:54 Antonio ROLON, [place] Bales ED Provider 21-Apr-2024 10:42:53 Cinthia RUSSELL, Pam Watkins ED Nurse 21-Apr-2024 14:02:43 Comment: MEDICAL INFORMATION Vitals Information: Vital Sign Triage Latest Temp Oral 98.0 DegF 98.0 DegF Temp Axillary Temp Rectal O2 Sat Respiratory Rate 16 br/min 16 br/min Peripheral Pulse Rate 88 bpm 88 bpm Blood Pressure 150 mm/Hg / 90 150 mm/Hg / 90 Major Tests and Procedures: The following procedures and tests were performed during your ED visit. Allergy Information: codeine Medication List: New Medications [facility], [address], [place] [id number], [phone] nitrofurantoin (nitrofurantoin macrocrystals-monohydrate 100 mg oral capsule) 1 cap Oral 2 times a day for 7 Days. Refills: 0. Last Dose: [facility] 1104, [address], [place] [id number], [phone] nitrofurantoin (nitrofurantoin macrocrystals-monohydrate 100 mg oral capsule) 1 cap Oral 2 times a day for 7 Days. Refills: 0. Comment: PATIENT EDUCATION INFORMATION Instructions: Urinary Tract Infection, Adult New Medications [facility], [address], [place] [id number], [phone] nitrofurantoin (nitrofurantoin macrocrystals-monohydrate 100 mg oral capsule) 1 cap Oral 2 times a day for 7 Days. Refills: 0. Last Dose: Follow up: With: Address: When: Follow-up with your OB provider as soon as you return home, return to the emergency department for any acute changes or worsening in your symptoms. In 1 week 28-Apr-2024 Comments: Call for follow up appointment Return to ED if symptoms worsen Comment: PHYSICIAN DOCUMENTATION/NOTES Extracted from: Title:Abdominal Pain- *ED Author:Kaylee Bhagat APRN Date:04/21/24 Impression and Plan Diagnosis Acute urinary tract infection : [id number] N39.0, Discharge, Medical Plan Condition: Stable. Disposition: Discharged: Time 21-Apr-2024 13:04:00, to home. Prescriptions: [facility] Pharmacy: nitrofurantoin macrocrystals-monohydrate 100 mg oral capsule (Prescribe): 100 mg, 1 cap(s), Oral, BID, for 7 day(s), 14 cap(s), 0 Refill(s). Patient was given the following educational materials: Urinary Tract Infection, Adult, Urinary Tract Infection, Adult. Follow up with: ; Follow-up with your OB provider as soon as you return home, return to the emergency department for any acute changes or worsening in your symptoms. In 1 week 28-Apr-2024 Call for follow up appointment Return to ED if symptoms worsen. Counseled: Patient, Regarding diagnosis, Regarding diagnostic results, Regarding treatment plan, Regarding prescription, Patient indicated understanding of instructions. Diagnostic Tests Pending * Urine Culture Clean Catch 04/21/24 Functional Status 04/21/24 Oxygen Therapy Room air SpO2 100 Medications nitrofurantoin macrocrystals-monohydrate 100 mg oral capsule 100 mg 1 cap(s), Oral, BID, X 7 day(s), # 14 cap(s), 0 Refill(s), Pharmacy: [facility] Start Date: 04/21/24 Stop Date: 04/28/24 Status: Ordered Mental Status 04/21/24 Eye Opening Response [place] Spontaneous ly Best Motor Response Tracey Obeys comman ds Best Verbal Response [place] Oriented [place] Coma Score 15 Results Orders for Microbiology Reports Name Date Smear Wet Mount 04/21/24 Microbiology Reports TEST:Smear Wet [place] STATUS:Auth (Verified) BODY SITE:Vagina SOURCE:Vaginal COLLECTED DATE/TIME:04/21/24 10:53 AM FINAL REPORT No Trichomonas observed. No yeast observed No Clue cells seen suggestive of possible G. vaginalis INTERPRETIVE DATA Radiology Reports * Exam Date Time Procedure Performing Provider Status 04/21/24 11:41 AM US Limited/FU Mara Wright; Auth (Verified) Notes: (US Limited/FU) Reason For Exam: lower abd pain Report US LIMITED COMPARISON: [...] Cuong Dominguez MD 04/21/2024 12:35 PM EDT Signed (Electronic Signature):Alberto ROLON, Cuong Bangura RA Signed Date/Time04.21.2024 12:35 Vital Signs Most recent to oldest [Reference Range]: 1 Blood Pressure 150/90mm/Hg (04/21/24 10:39 AM) Mean Arterial Pressure, Cuff 110 (04/21/24 10:39 AM) Peripheral Pulse Rate [60-100 bpm] 88 bp m (04/21/24 10:39 AM) Pulse Score 0 (04/21/24 10:42 AM) Respiration Rate Score 1 (04/21/24 10:42 AM) Respiratory Rate [14-20 br/min] 16 br/mi n (04/21/24 10:39 AM) Systolic Blood Pressure Score 0 (04/21/24 10:42 AM) Temperature Oral [96-100.8 DegF] 98.0 De gF (04/21/24 10:39 AM) Temperature Score 0 (04/21/24 10:42 AM) Hospital Discharge Instructions Patient Education 04/21/2024 13:05:03 Urinary Tract Infection, Adult Urinary Tract Infection, Adult A urinary tract infection (UTI) is an infection of any part of the urinary tract, which includes the kidneys, ureters, bladder, and urethra. These organs make, store, and get rid of urine in the body. An upper UTI affects the ureters and kidneys (pyelonephritis), and a lower UTI affects the bladder(cystitis) and urethra (urethritis). What are the causes? Most urinary tract infections are caused by bacteria in your genital area, around the entrance to your urinary tract (urethra). These bacteria grow and cause irritation and inflammation of your urinary tract. What increases the risk? You are more likely to develop this condition if: ??? You have a urinary catheter that stays in place (indwelling). ??? You are not able to control when you urinate or have a bowel movement (you have incontinence). ??? You are female. ??? You have certain genes that increase your risk (genetics). ??? You are sexually active. ??? You are female and use a spermicide or diaphragm for control. ??? You take antibiotic medicines. ??? You have a situation that causes your flow of urine to slow down, such as: ??? An enlarged prostate. ??? Blockage in your urethra (stricture). ??? A kidney stone. ??? A neurogenic bladder. ??? Not getting enough to drink, or not urinating often. ??? You have certain medical conditions, such as: ??? Diabetes. ??? A weak disease-fighting system (immunesystem). ??? Estrogen deficiency. ??? Sickle cell disease. ??? Gout. ??? Spinal cord injury. ??? . What are the signs or symptoms? Symptoms of this condition include: ??? Needing to urinate right away (urgently). ??? Frequent urination or passing small amounts of urine frequently. ??? Pain or burning with urination. ??? Blood in the urine. ??? Urine that smells bad or unusual. ??? Trouble urinating. ??? Cloudy urine. ??? Vaginal discharge, if you are female. ??? Pain in the abdomen or the lower back. You may also have: ??? Vomiting or a decreased appetite. ??? Confusion. ??? Irritability or tiredness. ??? A fever. ??? Diarrhea. Older adults may not have any symptoms until the infection has worsened. How is this diagnosed? This condition is diagnosed with a medical history and physical exam. You will also need to providea urine sample to test your urine. Other tests may be done, including: ??? Blood tests. ??? Sexually transmitted disease (STD) testing. If you have had more than one UTI, a cystoscopy or imaging studies may be done to determine the cause of the infections. How is this treated? Treatment for this condition includes: ??? Antibiotic medicine. ??? Kamk-ufk-cdfxpcv medicines to treat discomfort. ??? Drinking enough water to stay hydrated. If you have frequent infections or have other conditions such as a kidney stone, you may need to see a health care provider who specializes in the urinary tract (urologist). Some urinary tract infections that have worsened (sepsis) are treated in the hospital with IV antibiotics. Follow these instructions at home: ??? Take knue-sdx-yugrjhg and prescription medicines only as told by your health care provider. ??? If you were prescribed an antibiotic, take it as told by your health care provider. Do not stoptaking the antibiotic even if you start to feel better. ??? Drink enough fluid to keep your urine pale yellow. For most people, this is 6???10 glasses of water per day. ??? Keep all follow-up visits as told by your health care provider. This is important. ??? Make sure you: ??? Empty your bladder often and completely. Do not hold urine for long periods of time. ??? Empty your bladder after sex. ??? Wipe from front to back after a bowel movement if you are female. Use each tissue one time whenyou wipe. Contact a health care provider if: ??? Your symptoms do not get better after 1???2 days. ??? Your symptoms go away and then return. Get help right away if you have: ??? Severe pain in your back or your lower abdomen. ??? A fever. ??? Nausea or vomiting. Summary ??? A urinary tract infection (UTI) is an infection of any part of the urinary tract, which includes the kidneys, ureters, bladder, and urethra. ??? Most urinary tract infections are caused by bacteria in your genital area, around the entrance to your urinary tract (urethra). ??? Treatment for this condition includes antibiotic medicines. ??? If you were prescribed an antibiotic, take it as told by your health care provider. Do not stoptaking the antibiotic even if you start to feel better. This information is not intended to replace advice given to you by your health care provider. Make sure you discuss any questions you have with your health care provider. Document Released: 04/28/2006 Document Revised: 09/13/2018 Document Reviewed: 06/08/2016 [employer] Interactive Patient Education ?? 2019 [employer] Follow Up Care 04/21/2024 10:35:36 With:Follow-up with your OB provider as soon as you return home, return to the emergency department for any acute changes or worsening in your symptoms. Address:Unknown When:04/28/2024 13:05:28 Comments:Call for follow up appointmentReturn to ED if symptoms worsen Emergency department Discharge summary * Cinthia RUSSELL, Pam Watkins: PERFORM, SIGN, VERIFY Gater Kaylee AUGUSTIN: SIGN Event Display: ED Clinical Summary Authored Date: [id number] [facility] Emergency Department Discharge Instructions (Clinical) [address] [place] [address] ext [phone] PERSON INFORMATION Name: MARIA D HARPER? : ??1995?Age: 29 Years ? Address and Phone: [address] [place] [phone] ED Checkout Date/Time: 04/21/24 01:34:00 PM [facility] DISCHARGE INFORMATION Date of Discharge: 21-Apr-2024 13:06:00 Discharge Diagnosis: Acute urinary tract infection PROVIDERS Primary Care Provider: ?? Name: Physician , Karla ?? Phone: Emergency Department Providers: Provider Role Assigned Unassigned Gater Kaylee AUGUSTIN ED MLP 21-Apr-2024 10:36:42 Rosamaria Black ED Nurse 21-Apr-2024 10:37:54 Antonio ROLON, [place] Bales ED Provider 21-Apr-2024 10:42:53 Cinthia RUSSELL, Pam Watkins ED Nurse 21-Apr-2024 14:02:43 Comment: MEDICAL INFORMATION Vitals Information: Vital Sign Triage Latest Temp Oral 98.0 DegF 98.0 DegF Temp Axillary Temp Rectal O2 Sat Respiratory Rate 16 br/min 16 br/min Peripheral Pulse Rate 88 bpm 88 bpm Blood Pressure 150 mm/Hg / 90 150 mm/Hg / 90 Major Tests and Procedures: The following procedures and tests were performed during your ED visit. Allergy Information: codeine Medication List: New Medications [facility], [address], [place] [id number], [phone] nitrofurantoin (nitrofurantoin macrocrystals-monohydrate 100 mg oral capsule) 1 cap Oral 2 times a day for 7 Days. Refills: 0. Last Dose: [facility], [address], [place] [id number], [phone] nitrofurantoin (nitrofurantoin macrocrystals-monohydrate 100 mg oral capsule) 1 cap Oral 2 times a day for 7 Days. Refills: 0. Comment: PATIENT EDUCATION INFORMATION Instructions: Urinary Tract Infection, Adult New Medications [facility], [address], [place] [id number], [phone] nitrofurantoin (nitrofurantoin macrocrystals-monohydrate 100 mg oral capsule) 1 cap Oral 2 times a day for 7 Days. Refills: 0. Last Dose: Follow up: With: Address: When: Follow-up with your OB provider as soon as you return home, return to the emergency department for any acute changes or worsening in your symptoms. In 1 week 28-Apr-2024 Comments: Call for follow up appointment Return to ED if symptoms worsen Comment: PHYSICIAN DOCUMENTATION/NOTES Physician Emergency department Note * Kaylee Bhagat APRN: MODIFY, SIGN, VERIFY, PERFORM Event Display: ED Physician Record Authored Date: Patient: MARIA D HARPER Age: 29 years Sex: Female : 1995 Associated Diagnoses: Acute urinary tract infection Author: Kaylee Bhagat APRN Basic Information Time seen: Date & time 21-Apr-2024 10:44:00. History source: Patient. Arrival mode: Private vehicle, walking. History limitation: None. History of Present Illness The patient presents with abdominal pain during . The onset was 1 days ago. The course/duration of symptoms is fluctuating in intensity. The location is pelvis. The character of symptoms is achy. The degree at onset was moderate. The degree at present is moderate. Radiating pain: none. Status : 1 15 weeks. The exacerbating factor is urination. The relieving factor is none. Risk factors consist of none. Prior episodes: occasional. Therapy today: none. Associated symptoms: dysuria. Patient presents to the emergency department for evaluation of dysuria and pelvic pain. Patient states that she is 15 weeks , had a colposcopy 2 weeks ago reference to abnormal Papsmear and she began to experience dysuria and pelvic pain yesterday. Patient states that she has a history of urinary tract infections and her symptoms today are similar to that that she is experienced with a previous UTI. Patient is also concerned for her due to her recent colposcopy andher pelvic pain. Patient denies any abnormal vaginal bleeding or discharge.. Review of Systems Constitutional symptoms: Negative except as documented in HPI. Skin symptoms: Negative except as documented in HPI. Eye symptoms: Negative except as documented in HPI. ENMT symptoms: Negative except as documented in HPI. Respiratory symptoms: Negative except as documented in HPI. Cardiovascular symptoms: Negative except as documented in HPI. Gastrointestinal symptoms: Abdominal pain, pelvic. Genitourinary symptoms: Dysuria. Musculoskeletal symptoms: Negative except as documented in HPI. Neurologic symptoms: Negative except as documented in HPI. Psychiatric symptoms: Negative except as documented in HPI. Health Status Allergies: Allergic Reactions (Selected) Severity Not Documented Codeine- No reactions were documented.. Physical Examination Vital Signs Vital Signs 21-Apr-2024 10:42 EDT Temperature Score 0 Systolic Blood Pressure Score 0 21-Apr-2024 10:42 EDT Pulse Score 0 Respiration Rate Score 1 21-Apr-2024 10:39 EDT Systolic Blood Pressure 150 mm/Hg Diastolic Blood Pressure 90 Temperature Oral 98.0 DegF Normal Peripheral Pulse Rate 88 bpm Normal Respiratory Rate 16 br/min Normal Mean Arterial Pressure, Cuff 110 . Measurements 21-Apr-2024 10:39 EDT Height/Length Measured 165.00 cm Height/Length Dosing 165 cm Weight 74.00 kg Weight Dosing 74 kg . General: Alert, mild distress. Skin: Warm, dry, pink. Head: Normocephalic, atraumatic. Neck: Supple, trachea midline. Eye: Pupils are equal, round and reactive to light, normal conjunctiva. Ears, nose, mouth and throat: Tympanic membranes clear, oral mucosa moist. Cardiovascular: Regular rate and rhythm. Respiratory: Lungs are clear to auscultation, respirations are non-labored, breath sounds are equal, Symmetrical chest wall expansion. Chest wall: No tenderness. Back: Nontender, Normal range of motion, Normal alignment. Musculoskeletal: Normal ROM, normal strength, no tenderness. Gastrointestinal: Soft, Gravid, Tenderness: Suprapubic, Guarding: Negative, Rebound: Negative, Bowel sounds: Normal, Organomegaly: Negative. Neurological: Alert and oriented to person, place, time, and situation, No focal neurological deficit observed, CN II-XII intact. Lymphatics: No lymphadenopathy. Psychiatric: Cooperative, appropriate mood & affect, normal judgment. Medical Decision Making Differential Diagnosis: Abdominal pain, ectopic , discomfort of , threatened , urinary tract infection. Rationale: Patient presents to the emergency department for evaluation of dysuria and pelvic pain. Patient states that she is 15 weeks , had a colposcopy 2 weeks ago reference to abnormal Papsmear and she began to experience dysuria and pelvic pain yesterday. Patient states that she has a h istory of urinary tract infections and her symptoms today are similar to that that she is experienced with a previous UTI. Patient is also concerned for her due to her recent colposcopy andher pelvic pain. Patient denies any abnormal vaginal bleeding or discharge. Wet mount negative for yeast, trichomonas, or clue cells Urinalysis positive for acute urinary tract infection Laboratory results unremarkable Ultrasound limited heart rate 138, single live intrauterine dated at 15 weeks 0 days Discussed all findings with the patient, discussed utilization of antibiotic therapy for UTI, discussed following up with OB as soon as she returns back home. Discussed returning to the emergency department for any acute changes or worsening of symptoms.. Documents reviewed: Emergency department records, prior records. Orders Include Orders Previously Placed (Selected) Inpatient Orders Ordered Discharge To: Ordered (In-Lab) Urine Culture Clean Catch: Completed CBC w/ Auto Diff: CMF: Macrobid: 100 mg, 1 cap(s), Oral, Once Smear Wet Mount: US Limited/FU: Urinalysis with Reflex to Culture: hCG: Prescriptions Prescribed nitrofurantoin macrocrystals-monohydrate 100 mg oral capsule: 100 mg, 1 cap(s), Oral, BID, for 7 day(s), 14 cap(s), 0 Refill(s). Results review: Lab results : Lab Results 21-Apr-2024 10:53 EDT Smear Wet Mount SEE REPORT 21-Apr-2024 10:52 EDT UA Color Yellow UA pH 6.0 Normal UA Urobilinogen NEGATIVE UA Blood NEGATIVE UA Glucose NEGATIVE UA Ketones NEGATIVE UA Protein 100 mg/dL (2+) UA Appearance Cloudy UA Bilirubin NEGATIVE UA Spec. [place] 1.028 Normal UA Nitrites NEGATIVE UA Leukoesterase LARGE UA WBC 21-50 /HPF UA RBC 0-5 /HPF UA SQ Epi Cells 21-50 /HPF UA Bacteria RARE UA Mucus MANY ASA (Ascorbic Acid) NEGATIVE 21-Apr-2024 10:48 EDT Sodium Level 136 mmol/L [...] GFR (CKD-EPI 2020) 120 mL/min/1.73m?? NA hCG >88734 mIU/mL HI WBC 9.1 x10E3/uL Normal Neutrophils [...] % 0.0 % Normal . Radiology results: Result type: US Limited/FU Result date: April 21, 2024 11:41 EDT Result status: Auth (Verified) Result title: US Limited/FU Performed by: Cuong Dominguez MD on April 21, 2024 12:37 EDT Verified by: Cuong Dominguez MD on April 21, 2024 12:35 EDT Encounter info: [id number], [facility], Emergency, 21-Apr-2024 - 21-Apr-2024 * Final Report * Reason For Exam lower abd pain Report [...] 12:35 PM EDT Signature Line Signed (Electronic Signature):Cuong Dominguez MD RA Signed Date/Time04.21.2024 12:35 This document has an image . Impression and Plan Diagnosis Acute urinary tract infection : [id number] N39.0, Discharge, Medical Plan Condition: Stable. Disposition: Discharged: Time 21-Apr-2024 13:04:00, to home. Prescriptions: Launch prescriptions Pharmacy: nitrofurantoin macrocrystals-monohydrate 100 mg oral capsule (Prescribe): 100 mg, 1 cap(s), Oral, BID, for 7 day(s), 14 cap(s), 0 Refill(s). Patient was given the following educational materials: Urinary Tract Infection, Adult, Urinary Tract Infection, Adult. Follow up with: ; Follow-up with your OB provider as soon as you return home, return to the emergency department for any acute changes or worsening in your symptoms. In 1 week 28-Apr-2024 Call for follow up appointment Return to ED if symptoms worsen. Counseled: Patient, Regarding diagnosis, Regarding diagnostic results, Regarding treatment plan, Regarding prescription, Patient indicated understanding of instructions. Electronically Signed by 04/21/2024 08:34 PM EDT Kaylee Bhagat APRN [place] Alvarez MD * Gater Kaylee AUGUSTIN: PERFORM Event Display: ED Physician Record Authored Date: [id number] Provider in Triage Entered On: 21-Apr-2024 10:50 EDT Performed On: 21-Apr-2024 10:44 EDT by Kaylee Bhagat APRN Staff Performing MSE : Screening Provider MSE Assessment/ Plan : MSE done at time of Full Medical Exam, see Provider Note Chief Complaint, MSE : Abdominal pain Brief History/ Exam : Lower abdominal pain, dysuria, vaginal discharge Electronically Signed by : Kaylee Bhagat APRN Date/Time : 21-Apr-2024 10:44 EDT Kaylee Bhagat APRN - 21-Apr-2024 10:44 EDT Electronically Signed by 04/21/2024 10:44 AM EDT Kaylee Bhagat APRN Patient Care team information Care Team Personnel Name: Karla Fabian Position: Non-System User Member Role: Primary Care Physician Care Team Related Persons Name: SYLVESTER HARPER Address: home
--- NOTE | 2024-07-24 13:00 | CRLHL7_ITS ---
For Patients: As a result of the Century Cures Act, medical imaging exams and procedure reports are released immediately into your electronic medical record. You may view this report before your referring provider. If you have questions, please contact your health care provider. INDICATION: Low-lying placenta TECHNIQUE: Ultrasound OB pelvis transabdominal. Real-time levy-scale imaging of the fetus was performed as well as color Doppler and spectral Doppler analysis of the umbilical artery. COMPARISON: None. FINDINGS: Single living intrauterine gestation. heart rate: 157 beats per minute. Presentation: Breech. Placenta: Posterior. Inferior placental margin measures 9.8 cm from the cervical os. Cervix: 4.9 cm and closed Amniotic fluid deepest pocket: 4.9 cm. The following biometric measurements were obtained: Biparietal diameter: 7.4 cm, compatible 29 weeks 6 day. Head circumference: 26.5 cm, compatible with 28 weeks 6 day. Abdominal circumference: 24.3 cm, compatible with 28 weeks 4 day. Femur length: 5.3 cm, compatible with 28 weeks 1 days. Ultrasound age: 28 weeks 6 days. MARIAH by US: 10/10/2024. EFW: 1247 Grams, 54 %. IMPRESSION.: 1. Single live intrauterine gestation in breech position measuring 28 weeks 6 days with MARIAH by ultrasound of 10/10/2024. weight is in the 54th percentile 2. Resolution of prior low-lying placenta with inferior placental margin 9.8 cm from the cervical os. Dictated by Dianne Porras MD @ 07/25/2024 11:52:25 AM (Electronically Signed)
== END 2024-07-24 12:57 | disposition home or self-care (01) ==
LOC: US 12:56
PROVIDERS: Visit Provider Obstetrics & Gynecology
DX: O44.43 Low lying placenta NOS or without hemorrhage, third trimester (principal); Z3A.28 28 weeks gestation of pregnancy
CPT/HCPCS: 76816; 86592; 86850; 86870; 86880; 86900; 86901; 86905; 86906

== ENCOUNTER 2024-09-01 18:55 | Outpatient (CLI) | payer OTHER, SELFPAY ==
[2024-09-01 19:45] VITALS: BP 134/72; PULSE 94; RESP 16; TEMP 36.6
--- NOTE | 2024-09-01 20:11 | PC.OBNST ---
NST Note NST Note Start: 09/01/24 19:33 Freq: ONCE Status: Active Protocol: Document 09/01/24 20:10 MADHU (Rec: 09/01/24 20:11 MADHU [id number]) NST Note 1 Para (# of births) 0 EDC 10/15/24 Gestational Age In Weeks & Days 33 Weeks & 5 Days Patient Presented with Complaint(s) of Decreased movement Reactive Yes RN Jean Hsu, RN Date 09/01/24 Reactive Yes YVONNE Matias RN Date 09/01/24 OB NST charge Yes Complete NST Note via Write Note Yes The provider's electronic signature indicates the NST is reactive/appropriate for gestational age. *Note to provider: If an addendum is required, open the patient's chart and click on the note under the Nurse/Allied Health tab.
== END 2024-09-01 19:57 | disposition home or self-care (01) ==
LOC: OB OUT 18:56 → OB 18:58
PROVIDERS: Referring Provider Obstetrics & Gynecology; Visit Provider Obstetrics & Gynecology
DX: O36.8130 Decreased fetal movements, third trimester, not applicable or unspecified (principal); Z3A.33 33 weeks gestation of pregnancy
CPT/HCPCS: 59025; G0463

== ENCOUNTER 2024-09-14 12:00 | Outpatient (CLI) | payer OTHER, SELFPAY ==
[2024-09-14 12:15] VITALS: PULSE 102; RESP 16; TEMP 36.4; O2SAT 97
[2024-09-14 12:17] VITALS: BP 131/76; PULSE 106
[2024-09-14 13:20] LABS: Appearance Urine Slightly Cloudy (Clear); Bilirubin Urine Negative (Negative); Blood Urine Negative (Negative); Color Urine Light yellow (Yellow); Glucose Urine Negative (Negative); Ketones Urine Negative (Negative); Leukocyte Esterase Urine 3+ (Negative); Nitrite Urine Negative (Negative); Protein Urine Negative (Negative); Specific Gravity Urine 1.015 (1.000-1.030); Urobilinogen Urine 0.2 (0.2-1.0); pH Urine 6.5 (5.0-8.5)
[2024-09-14 13:24] LABS: Amnisure Rom* Negative
[2024-09-14 13:44] LABS: RBC Urine 0-2 (0-2)
[2024-09-14 13:45] LABS: Bacteria Urine Many; Squamous Epithelial Cell Urine Many (None-Few)
[2024-09-14 14:26] LABS: Bacterial Vaginosis* Negative (Negative); Candida glab/krus NOT DETECTED (No Detected); Candida species NOT DETECTED (No Detected); Trichomonas vaginalis NOT DETECTED (No Detected)
--- NOTE | 2024-09-14 14:43 | PC.OBNST ---
NST Note NST Note Start: 09/14/24 12:07 Freq: ONCE Status: Active Protocol: Document 09/14/24 14:40 VMM (Rec: 09/14/24 14:43 VMM Desktop) NST Note 1 Para (# of births) 0 EDC 10/15/24 Gestational Age In Weeks & Days 35 Weeks & 4 Days Patient Presented with Complaint(s) of Contractions/cramping,Leaking fluid,Pain If Pain, describe location Pelvic Other Complaints Complaining of burning with urination, increased urgency with urination and pelvic pain . Patient is also complaining of cramping and increased vaginal discharge that is clear fluid. Reactive Yes Appropriate for Gestational Age Yes YVONNE Martinez RN Date 09/14/24 Reactive Yes Appropriate for Gestational Age Yes MICHELLE Platt Date 09/14/24 OB NST charge Yes Complete NST Note via Write Note Yes The provider's electronic signature indicates the NST is reactive/appropriate for gestational age. *Note to provider: If an addendum is required, open the patient's chart and click on the note under the Nurse/Allied Health tab.
== END 2024-09-14 14:50 | disposition home or self-care (01) ==
LOC: OB OUT 12:00 → OB 12:13
PROVIDERS: Visit Provider Obstetrics & Gynecology
DX: O47.03 False labor before 37 completed weeks of gestation, third trimester (principal); O23.43 Unspecified infection of urinary tract in pregnancy, third trimester; Z3A.35 35 weeks gestation of pregnancy; Z34.90 Encounter for supervision of normal pregnancy, unspecified, unspecified trimester; Z51.89 Encounter for other specified aftercare; Z34.93 Encounter for supervision of normal pregnancy, unspecified, third trimester; Z3A.37 37 weeks gestation of pregnancy; O32.1XX0 Maternal care for breech presentation, not applicable or unspecified; Z3A.38 38 weeks gestation of pregnancy
CPT/HCPCS: 59025; 81001; 81003; 81513; 84112; 87086; 87186; 87481; 87661; G0463

== ENCOUNTER 2024-09-20 11:59 | Outpatient (CLI) | payer OTHER, SELFPAY ==
--- NOTE | 2024-09-20 12:15 | CRLHL7_ITS ---
For Patients: As a result of the Century Cures Act, medical imaging exams and procedure reports are released immediately into your electronic medical record. You may view this report before your referring provider. If you have questions, please contact your health care provider. OB ULTRASOUND MARIAH by LMP: 10/15/2024. GA: 36 w, 3 d. INDICATION: Breech presentation, f/u growth and position. TECHNIQUE: Real time levy scale imaging of the fetus was performed. Transabdominal. COMPARISON: 07/24/2024. position: Vertex. Placental position: Posterior. Cervix: Not visualized. Amniotic Fluid: 7.9 cm SDP (greater than/equal to: 2- less than 8 cm). BPD: 9.0 cm. 36 w, 4 d, 64.7 percent. HC: 3.6 cm. 40 w, 0 d, 93.9 percent. AC: 35.8 cm. 39 w, 5 d, 79.7 percent. FL: 6.9 cm. 35 w, 3 d, 22.9 percent. FL/AC ratio: 19.29 percent. HC/AC ratio: 0.97. heart rate: 154 bpm. age by this US: 38 w, 0 d. MARIAH by this US: 10/04/2024. EFW: 3499 g. Weight: 7 lbs, 11 oz. Percentile by MARIAH: 94.6 percent. IMPRESSION: Single live intrauterine gestation at 38 weeks 0 days. MARIAH of 10/04/2024. Estimated weight 3499 grams which lies at the 95th percentile. Jayda Soliman M.D. Diagnostic/Breast Radiologist [email or web address] Transcribed: 9:00 a.m. JR/Dictated by: Jayda Soliman MD @ 09/21/2024 6:58:00 AM (Electronically Signed)
== END 2024-09-20 12:00 | disposition home or self-care (01) ==
LOC: US 11:59
PROVIDERS: Visit Provider Obstetrics & Gynecology
DX: O32.1XX0 Maternal care for breech presentation, not applicable or unspecified (principal); Z3A.38 38 weeks gestation of pregnancy
CPT/HCPCS: 76816

== ENCOUNTER 2024-09-20 13:23 | Outpatient (CLI) | payer OTHER, SELFPAY | END 2024-09-20 13:24 | disposition home or self-care (01) | LOC: NFLDREF 13:24 | PROVIDERS: Visit Provider Obstetrics & Gynecology | DX: Z34.93 Encounter for supervision of normal pregnancy, unspecified, third trimester (principal); Z3A.37 37 weeks gestation of pregnancy | CPT/HCPCS: 87086 ==

== ENCOUNTER 2024-09-25 11:30 | Outpatient (RCR) | payer OTHER, SELFPAY ==
--- OUTSIDE RECORDS SUMMARY | 2024-07-12 15:09 | XMS_ITS | Continuity of Care Document ---
Author Organization [facility] o[facility] Address [address] [place], [place] [id number]- Care Team Providers Care Cras Name Role Phone Physician, Karla Primary Care Physician Unavailable Encounter Date(s): 04/25/24 - 04/25/24 [place] [id number] Encounter Diagnosis Acute lower UTI(Discharge Diagnosis) - 04/25/24 Discharge Disposition: Home or Self Care Attending Physician: Maryanne Graf DO Referring Physician: Physician , SelfReferral Allergies, Adverse Reactions, Alerts Substance Criticality Severity Reaction Reaction Severity Status codeine Active Assessment and Plan Extracted from: Title:ED Patient Summary Author:Love Black Date:04/25/24 [facility] Emergency Department [address] [place], [place] [id number] ext [phone] Discharge Instructions (Patient) Don't forget to register for [facility] [employer] by calling [phone] Name: MARIA D HARPER Current Date: 25-Apr-2024 10:50:46 Savi/ : 1995 Reason for Visit: ED Checkout Date/Time: 04/25/24 10:50:00 AM Savi/ Patient Address: [address] [place] [id number] Patient Primary Care Provider: Name: Physician Karla Phone: Emergency Department Providers: Medication Information: [facility] ED Physicians provided you with a complete list of medications post discharge, if you have been instructed to stop taking a medication please ensure you also follow up with this information to your Primary Care Physician. Unless otherwise noted, patient will continue to take medications as prescribed prior to the Emergency Room visit. Any specific questions regarding your chronic medications and dosages should be discussed with your physician(s) and pharmacist. New Medications [facility], [address], [place] [id number], [phone] cephalexin (Keflex 500 mg oral capsule) 1 cap Oral every 8 hours. Refills: 0. Last Dose: No Longer Take the Following Medications nitrofurantoin (nitrofurantoin macrocrystals-monohydrate 100 mg oral capsule) 1 cap Oral 2 times a day for 7 Days. Refills: 0. [facility], [address], [place] [id number], [phone] cephalexin (Keflex 500 mg oral capsule) 1 cap Oral every 8 hours. Refills: 0. [facility] would like to thank you for allowing us to assist you with your healthcare needs. The following includes patient education materials and information regarding your injury/illness. You may receive a survey after you get home. Please be sure to fill this out as we are very interested in your comments Comment: MARIA D HARPER has been given the following list of follow-up instructions, prescriptions, and patient education materials: Follow-up Instructions: With: Address: When: Marcel Javed, [address] [place] [address] Business (1) In 2 days 27-Apr-2024 With: Address: When: Karla Physician In 1 week Patient Education Materials: Urinary Tract Infection, Adult, Kykz-sv-Cewx Urinary Tract Infection, Adult A urinary tract infection (UTI) is an infection of any part of the urinary tract. The urinary tract includes the: Kidneys. Ureters. Bladder. Urethra. These organs make, store, and get rid of pee (urine) in the body. Follow these instructions at home: Take bwxe-twf-ytmfruv and prescription medicines only as told by your doctor. If you were prescribed an antibiotic medicine, take it as told by your doctor. Do not stop taking it even if you start to feel better. Drink enough fluid to keep your pee (urine) pale yellow. For most people, this is 6 1 0 glasses of water each day. Keep all follow-up visits as told by your doctor. This is important. Make sure you: Empty your bladder often and completely. Do not hold pee for long periods of time. Empty your bladder after sex. Wipe from front to back after a bowel movement if you are female. Use each tissue one time when you wipe. Contact a doctor if: Your symptoms do not get better after 1 2 days. Your symptoms go away and then come back. Get help right away if: You have very bad pain in your back. You have very bad pain in your lower belly (abdomen). You have a fever. You are sick to your stomach (nauseous). You are throwing up (vomiting). Summary A urinary tract infection (UTI) is an infection of any part of the urinary tract. If you were prescribed an antibiotic medicine, take it as told by your doctor. Do not stop taking it even if you start to feel better. Drink enough fluid to keep your pee (urine) pale yellow. This information is not intended to replace advice given to you by your health care provider. Make sure you discuss any questions you have with your health care provider. Document Released: 01/04/2009 Document Revised: 09/13/2018 Document Reviewed: 06/08/2016 [employer] Interactive Patient Education 2019 [employer] Allergy Info: codeine Major Tests and Procedures: The following procedures and test were performed during your ED visit. Please be advised that laboratory and/or radiology results may be finalized after you are discharged and you will be notified of any changes that will affect your care. MEDICAL INFORMATION Vitals Information: Vital Sign Triage Latest Temp Oral Temp Axillary Temp Rectal O2 Sat Respiratory Rate Peripheral Pulse Rate Blood Pressure / 78 / 78 Comment: Tobacco Smoke: Tobacco smoke can be harmful to your health, and second hand smoke can be harmful to those around you. If you currently smoke, or know someone that does, quitting is recommended. Avoid second-hand smoke from others. If you don t smoke, don t start. Please talk with your physician about different ways to stop smoking. [employer] Phone: Web: www.cancer.org [employer] [place] [employer]ness (ANALI) - for local mental health resources Phone: 7-517-380-ANALI Web: www.NAMNeverwares[employer] I, MARIA D HARPER, has been given the following list of follow-up instructions, prescriptions, and patient education materials, including teach back demonstration: Urinary Tract Infection, Adult, Tqlj-po-Hdam New Medications [facility], [address], [place] [id number], [phone] cephalexin (Keflex 500 mg oral capsule) 1 cap Oral every 8 hours. Refills: 0. Last Dose: No Longer Take the Following Medications nitrofurantoin (nitrofurantoin macrocrystals-monohydrate 100 mg oral capsule) 1 cap Oral 2 times a day for 7 Days. Refills: 0. With: Address: When: Marcel Javed, [address], [address] [place] [address] Business (1) In 2 days 27-Apr-2024 With: Address: When: Karla Physician In 1 week Patient Signature 25-Apr-2024 10:50:46 Provider Signature 25-Apr-2024 10:50:46 Extracted from: Title:ED Clinical Summary Author:Shu Black Date:04/25/24 [facility] Emergency Department Discharge Instructions (Clinical) [address] [place] [address] ext [phone] PERSON INFORMATION Name: MARIA D HARPER : 1995 Age: 29 Years Address and Phone: [address] [place] [id number] ED Checkout Date/Time: 04/25/24 10:50:00 AM [facility] DISCHARGE INFORMATION Date of Discharge: 25-Apr-2024 10:50:00 Discharge Diagnosis: Acute lower UTI PROVIDERS Primary Care Provider: Name: Physician , Karla Phone: Emergency Department Providers: Provider Role Assigned Unassigned Sergio Hill MD ED Provider 25-Apr-2024 10:06:03 Rosamaria Black ED Nurse 25-Apr-2024 10:24:28 Comment: MEDICAL INFORMATION Vitals Information: Vital Sign Triage Latest Temp Oral 98.2 DegF 98.2 DegF Temp Axillary Temp Rectal O2 Sat Respiratory Rate 16 br/min 16 br/min Peripheral Pulse Rate 88 bpm 88 bpm Blood Pressure 134 mm/Hg / 78 134 mm/Hg / 78 Major Tests and Procedures: The following procedures and tests were performed during your ED visit. Allergy Information: codeine Medication List: New Medications [facility], [address], [place] [id number], [phone] cephalexin (Keflex 500 mg oral capsule) 1 cap Oral every 8 hours. Refills: 0. Last Dose: No Longer Take the Following Medications nitrofurantoin (nitrofurantoin macrocrystals-monohydrate 100 mg oral capsule) 1 cap Oral 2 times a day for 7 Days. Refills: 0. [facility] [address], [address] [place], [place] [id number], [phone] cephalexin (Keflex 500 mg oral capsule) 1 cap Oral every 8 hours. Refills: 0. Comment: PATIENT EDUCATION INFORMATION Instructions: Urinary Tract Infection, Adult, Txjx-du-Lzoz New Medications [facility] [address]3, [address], [place] [id number], [phone] cephalexin (Keflex 500 mg oral capsule) 1 cap Oral every 8 hours. Refills: 0. Last Dose: No Longer Take the Following Medications nitrofurantoin (nitrofurantoin macrocrystals-monohydrate 100 mg oral capsule) 1 cap Oral 2 times a day for 7 Days. Refills: 0. Follow up: With: Address: When: Marcel Javed, [address] [place] [address] Agent Ace (1) In 2 days 27-Apr-2024 With: Address: When: Karla Physician In 1 week Comment: PHYSICIAN DOCUMENTATION/NOTES Extracted from: Title:General Medical Problem *ED Author:Sergio Hill MD Date:04/25/24 Impression and Plan Diagnosis Acute lower UTI : [id number] N39.0, Discharge, Medical Plan Condition: Stable. Disposition: Discharged: Time 25-Apr-2024 10:40:00, to home. Prescriptions: Launch prescriptions Pharmacy: Keflex 500 mg oral capsule (Prescribe): 500 mg, 1 cap(s), Oral, q8h, 21 cap(s), 0 Refill(s). Patient was given the following educational materials: Urinary Tract Infection, Adult, Epon-we-Mxjq, Urinary Tract Infection, Adult, Gcpn-ak-Fsfy. Follow up with: Karla Physician In 1 week 02-May-2024; Marcel Javed In 2 days 27-Apr-2024. Counseled: Patient, Family, Regarding diagnostic results. Attestation Scribe Attestation: Kurtis Chapa, 25-Apr-2024 19:27:00, Scribing for and in the presence of, Sergio Hill MD. Physician Attestation: I personally performed the services described in this documentation and reviewed the document that was dictated to the scribe in my presence, and it accurately records my words and actions., Sergio Hill MD, 25-Apr-2024 19:27:00. Functional Status 04/25/24 Oxygen Therapy Room air SpO2 100 Medications Keflex 500 mg oral capsule 500 mg 1 cap(s), Oral, q8h, # 21 cap(s), 0 Refill(s), Pharmacy: [facility] Start Date: 04/25/24 Status: Ordered Mental Status 04/25/24 Eye Opening Response [place] Spontaneous ly Best Motor Response Tracey Obeys comman ds Best Verbal Response Tracey Oriented Paradise Coma Score 15 Vital Signs Most recent to oldest [Reference Range]: 1 Blood Pressure 134/78mm/Hg (04/25/24 9:58 AM) Mean Arterial Pressure, Cuff 97 (04/25/24 9:58 AM) Peripheral Pulse Rate [60-100 bpm] 88 bp m (04/25/24 9:58 AM) Pulse Score 0 (04/25/24 10:03 AM) Respiration Rate Score 1 (04/25/24 10:03 AM) Respiratory Rate [14-20 br/min] 16 br/mi n (04/25/24 9:58 AM) Systolic Blood Pressure Score 0 (04/25/24 10:03 AM) Temperature Oral [96-100.8 DegF] 98.2 De gF (04/25/24 9:58 AM) Temperature Score 0 (04/25/24 10:03 AM) Hospital Discharge Instructions Patient Education 04/25/2024 10:40:29 Urinary Tract Infection, Adult, Uoku-hk-Zswl Urinary Tract Infection, Adult A urinary tract infection (UTI) is an infection of any part of the urinary tract. The urinary tractincludes the: ??? Kidneys. ??? Ureters. ??? Bladder. ??? Urethra. These organs make, store, and get rid of pee (urine) in the body. Follow these instructions at home: ??? Take kslg-pjm-aoeuodg and prescription medicines only as told by your doctor. ??? If you were prescribed an antibiotic medicine, take it as told by your doctor. Do not stop taking it even if you start to feel better. ??? Drink enough fluid to keep your pee (urine) pale yellow. For most people, this is 6???10 glasses of water each day. ??? Keep all follow-up visits as told by your doctor. This is important. ??? Make sure you: ??? Empty your bladder often and completely. Do not hold pee for long periods of time. ??? Empty your bladder after sex. ??? Wipe from front to back after a bowel movement if you are female. Use each tissue one time whenyou wipe. Contact a doctor if: ??? Your symptoms do not get better after 1???2 days. ??? Your symptoms go away and then come back. Get help right away if: ??? You have very bad pain in your back. ??? You have very bad pain in your lower belly (abdomen). ??? You have a fever. ??? You are sick to your stomach (nauseous). ??? You are throwing up (vomiting). Summary ??? A urinary tract infection (UTI) is an infection of any part of the urinary tract. ??? If you were prescribed an antibiotic medicine, take it as told by your doctor. Do not stop taking it even if you start to feel better. ??? Drink enough fluid to keep your pee (urine) pale yellow. This information is not intended to replace advice given to you by your health care provider. Make sure you discuss any questions you have with your health care provider. Document Released: 01/04/2009 Document Revised: 09/13/2018 Document Reviewed: 06/08/2016 [employer] Patient Education ?? 2019 [employer] Follow Up Care 04/25/2024 09:53:21 With:Marcel Javed Address: Marcel Javed [address] [facility] [place] [address] Business (1) When:04/27/2024 10:41:56 With:Karla Physician Address:Unknown When:Within 1 Week(s) Emergency department Discharge summary * Rosamaria Black: SIGN, VERIFY, PERFORM Rosamaria Black: PERFORM Sergio Hill MD: SIGN Event Display: ED Clinical Summary Authored Date: [id number] [facility] Emergency Department Discharge Instructions (Clinical) [address] [place] [phone] ext [phone] PERSON INFORMATION Name: MARIA D HARPER? : ??1995?Age: 29 Years ? Address and Phone: [address] [place] [phone] ED Checkout Date/Time: 04/25/24 10:50:00 AM [facility] DISCHARGE INFORMATION Date of Discharge: 25-Apr-2024 10:50:00 Discharge Diagnosis: Acute lower UTI PROVIDERS Primary Care Provider: ?? Name: Physician , Karla ?? Phone: Emergency Department Providers: Provider Role Assigned Unassigned Sergio Hill MD ED Provider 25-Apr-2024 10:06:03 Rosamaria Black ED Nurse 25-Apr-2024 10:24:28 Comment: MEDICAL INFORMATION Vitals Information: Vital Sign Triage Latest Temp Oral 98.2 DegF 98.2 DegF Temp Axillary Temp Rectal O2 Sat Respiratory Rate 16 br/min 16 br/min Peripheral Pulse Rate 88 bpm 88 bpm Blood Pressure 134 mm/Hg / 78 134 mm/Hg / 78 Major Tests and Procedures: The following procedures and tests were performed during your ED visit. Allergy Information: codeine Medication List: New Medications [facility] [address], [address] [place], [place] [id number], [phone] cephalexin (Keflex 500 mg oral capsule) 1 cap Oral every 8 hours. Refills: 0. Last Dose: No Longer Take the Following Medications nitrofurantoin (nitrofurantoin macrocrystals-monohydrate 100 mg oral capsule) 1 cap Oral 2 times a day for 7 Days. Refills: 0. [facility] [address]6, [address], [place] [id number], [phone] cephalexin (Keflex 500 mg oral capsule) 1 cap Oral every 8 hours. Refills: 0. Comment: PATIENT EDUCATION INFORMATION Instructions: Urinary Tract Infection, Adult, Eswu-ad-Akis New Medications [facility] [address], [address] [place], [place] [address], [phone] cephalexin (Keflex 500 mg oral capsule) 1 cap Oral every 8 hours. Refills: 0. Last Dose: No Longer Take the Following Medications nitrofurantoin (nitrofurantoin macrocrystals-monohydrate 100 mg oral capsule) 1 cap Oral 2 times a day for 7 Days. Refills: 0. Follow up: With: Address: When: Marcel Javed, [address] [place] [address] Business (1) In 2 days 27-Apr-2024 With: Address: When: Karla Physician In 1 week Comment: PHYSICIAN DOCUMENTATION/NOTES Physician Emergency department Note * Liz ROLON, Sergio: PERFORM Event Display: ED Physician Record Authored Date: Provider in Triage Entered On: 25-Apr-2024 10:25 EDT Performed On: 25-Apr-2024 10:02 EDT by Sergio Hill MD Staff Performing MSE : Definitive Treatment Provider MSE Assessment/ Plan : MSE done at time of Full Medical Exam, see Provider Note Chief Complaint, MSE : Abdominal pain Brief History/ Exam : UTI, was seen here 4 days ago symptoms persist Electronically Signed by : Sergio Hill MD Date/Time : 25-Apr-2024 10:02 EDT Sergio Hill MD - 25-Apr-2024 10:25 EDT Electronically Signed by 04/25/2024 10:25 AM EDT Sergio Hill MD ED Physician Record* * Eduard ED uKrtis Chang: MODIFY, MODIFY Liz ROLON, Sergio: PERFORM, SIGN Liz ROLON, Sergio: SIGN, VERIFY Sergio Hill MD: VERIFY Event Display: ED Physician Record* Authored Date: [id number] Patient: MARIA D HARPER Age: 29 years Sex: Female : 1995 Associated Diagnoses: Acute lower UTI Author: Sergio Hill MD Basic Information MSE: MSE Medical Screening Exam Chief Complaint, MSE: Abdominal pain MSE Assessment/ Plan: MSE done at time of Full Medical Exam, see Provider Note Smoking Status 13 yrs and older, Trauma: Never smoker Staff Performing MSE: Definitive Treatment Provider Electronically Signed by: Sergio Hill MD Date/Time: 04/25/24 10:02:00 Brief History/ Exam ?? 04/25/24 10:02:00 UTI, was seen here 4 days ago symptoms persist ?? Signed By: Sergio Hill MD . Time seen: Immediately upon arrival 04/25/2024 09:58. History source: Patient. Arrival mode: Private vehicle. History limitation: None. History of Present Illness The patient presents with Burning on urination. 29 years old 2 weeks presents with burning on urination for few days. She was seen here 4 days ago and was prescribed Macrobid, her symptoms have not improved. She denies any fever or chills. No flank pain. No change in appetite. She is not diabetic.. The onset was 4 days ago. The course/duration of symptoms is constant. Location: Generalized Suprapubic. The character of symptoms is Burning. The degree at onset was minimal. The degree at present is minimal. Risk factors consist of . Therapy today: none. Associated symptoms: abdominal pain, dysuria, diarrhea, denies chest pain, denies vomiting, denies shortness of breath, denies cough, denies fever, denies chills, denies headache, denies dizziness and denies back pain. Additional history: none. Review of Systems Constitutional symptoms: No fever, no chills. Skin symptoms: Negative except as documented in HPI. Eye symptoms: Negative except as documented in HPI. ENMT symptoms: Negative except as documented in HPI. Respiratory symptoms: No shortness of breath, no cough. Cardiovascular symptoms: No chest pain, Gastrointestinal symptoms: Abdominal pain, moderate, suprapubic, achy, burning. Genitourinary symptoms: Dysuria. Musculoskeletal symptoms: No back pain, Neurologic symptoms: No headache, no dizziness. Psychiatric symptoms: Negative except as documented in HPI. Endocrine symptoms: Negative except as documented in HPI. Hematologic/Lymphatic symptoms: Negative except as documented in HPI. Allergy/immunologic symptoms: Negative except as documented in HPI. Additional review of systems information: All other systems reviewed and otherwise negative, All systems reviewed as documented in chart. Health Status Allergies: Allergic Reactions (Selected) Severity Not Documented Codeine- No reactions were documented.. Medications: (Selected) Prescriptions Prescribed Keflex 500 mg oral capsule: 500 mg, 1 cap(s), Oral, q8h, 21 cap(s), 0 Refill(s), per nurse's notes. Immunizations: Per nurse's notes. Menstrual history: Per nurse's notes. Past Medical/ Family/ Social History Surgical history: No active procedure history items have been selected or recorded., Reviewed as documented in chart. Family history: No family history items have been selected or recorded., Reviewed as documented in chart. Social history: Reviewed as documented in chart. Problem list: Per nurse's notes. Physical Examination Vital Signs Vital Signs 25-Apr-2024 10:03 EDT Temperature Score 0 Systolic Blood Pressure Score 0 Pulse Score 0 Respiration Rate Score 1 25-Apr-2024 09:58 EDT Systolic Blood Pressure 134 mm/Hg Diastolic Blood Pressure 78 Temperature Oral 98.2 DegF Normal Peripheral Pulse Rate 88 bpm Normal Respiratory Rate 16 br/min Normal Mean Arterial Pressure, Cuff 97 . Measurements 25-Apr-2024 09:58 EDT Height/Length Measured 165.00 cm Height/Length Dosing 165 cm Weight 70.00 kg Weight Dosing 70 kg . General: Alert, no acute distress. Skin: Warm, dry, pink, intact, no rash. Head: Normocephalic, atraumatic. Neck: Supple, trachea midline, no tenderness. Eye: Extraocular movements are intact, normal conjunctiva. Ears, nose, mouth and throat: Oral mucosa moist, no pharyngeal erythema or exudate. Cardiovascular: Regular rate and rhythm, No murmur, Normal peripheral perfusion. Respiratory: Lungs are clear to auscultation, respirations are non-labored, breath sounds are equal, Symmetrical chest wall expansion. Chest wall: No tenderness, No deformity. Back: Nontender, Normal range of motion, Normal alignment. Musculoskeletal: Normal ROM, normal strength, no tenderness, no swelling, no deformity. Gastrointestinal: Soft, Non distended, Normal bowel sounds, Mild suprapubic tenderness, no guardingor rebound. Genitourinary: No tenderness. Neurological: Alert and oriented to person, place, time, and situation, No focal neurological deficit observed, normal speech observed. Lymphatics: No lymphadenopathy. Psychiatric: Cooperative, appropriate mood & affect. Medical Decision Making Differential Diagnosis: Abdominal pain, dehydration, urinary tract infection. Documents reviewed: Emergency department nurses' notes, emergency department records. Orders Include Orders Previously Placed (Selected) Inpatient Orders Ordered Discharge To: Prescriptions Prescribed Keflex 500 mg oral capsule: 500 mg, 1 cap(s), Oral, q8h, 21 cap(s), 0 Refill(s). HEART Score HEART Score No qualifying data available.. Results review: Lab results : Lab Results 21-Apr-2024 10:53 EDT Smear Wet Mount SEE REPORT 21-Apr-2024 10:52 EDT UA Color Yellow UA pH 6.0 Normal UA Urobilinogen NEGATIVE UA Blood NEGATIVE UA Glucose NEGATIVE UA Ketones NEGATIVE UA Protein 100 mg/dL (2+) UA Appearance Cloudy UA Bilirubin NEGATIVE UA Spec. [place] 1.028 Normal UA Nitrites NEGATIVE UA Leukoesterase LARGE UA WBC 21-50 /HPF UA RBC 0-5 /HPF UA SQ Epi Cells 21-50 /HPF UA Bacteria RARE UA Mucus MANY ASA (Ascorbic Acid) NEGATIVE Urine Culture Clean Catch SEE REPORT 21-Apr-2024 10:48 EDT Sodium Level 136 mmol/L Normal Potassium Level 3.3 mmol/L LOW Chloride 105 mmol/L Normal Carbon Dioxide 24 mEq/L Normal Glucose Level 100 mg/dL Normal Calcium Level 8.8 mg/dL Normal Calcium corrected for Alb 8.7 mg/dL Normal BUN 7 mg/dL LOW Creatinine 0.7 mg/dL Normal Bun/Creat Ratio 10 ratio LOW Albumin Level 4.09 g/dl Normal Total Protein 7.3 g/dl Normal Globulin 3.2 g/dl Normal Alb/Glob Ratio 1.3 ratio Normal Bilirubin Total 0.8 mg/dL Normal Alk Phosph 58 U/L Normal AST (SGOT) 21 IntlUnit/L Normal ALT (SGPT) 18 U/L Normal Anion gap 7 mmol/L Normal est GFR (CKD-EPI 2020) 120 mL/min/1.73m?? NA hCG >96103 mIU/mL HI WBC 9.1 x10E3/uL Normal Neutrophils % 70.2 % Normal Lymphocytes % 22.9 % Normal Monocytes % 4.5 % Normal Eosinophils % 1.8 % Normal Basophils % 0.3 % Normal Ig% 0.3 % Normal Neutrophils Abs 6.36 x 10^3 Normal Lymphocytes Abs 2.08 x 10^3 Normal Monocytes Abs 0.41 x 10^3 Normal Eosinophils Abs 0.16 x 10^3 Normal Basophils Abs 0.03 x 10^3 Normal Ig Abs 0.03 x 10^3 Normal Red Blood Cell Count 4.05 x 10^6 Normal Hemoglobin 12.1 g/dl Normal Hematocrit 34.8 % LOW MCV 85.9 fL Normal MCH 29.9 pg Normal MCHC 34.8 % Normal RDW SD 40.8 fL Normal RDW CV 13.1 % Normal Platelet Count 262 x 10^3 Normal MPV 11.1 % Normal NRBC % 0.0 % Normal . Radiology results: US Limited/FU Event Date: 21-Apr-2024 11:41:22 EDT Updated: 21-Apr-2024 12:37 EDT US Limited/FU This document has an image Reason For Exam lower abd pain Report US LIMITED COMPARISON: None COMPLETED DATE: 04/21/2024 10:14 AM CDT CLINICAL INFORMATION: Patient Age: 29 years Patient Gender: Female Clinical Information: lower abd pain TECHNIQUE: Ultrasound imaging of the gravid pelvis FINDINGS: presentation is variable. heart rate is 138 bpm. Maximum vertical pocket is 3.1 cm. Placenta abruptio or previa: The placenta is low lying. Placenta position: Posterior. Measurements and EGA: BPD: 2.7 cm, 15 weeks 3 day(s) HC: 11.04 cm, 15 weeks 2 day(s) AC: 8.43 cm, 13 weeks 5 day(s) FL : 1.48 cm, 14 weeks 3 day(s) HC/AC ratio: 1.31. EGA by US: 15 weeks 0 day(s) EFW: 103 g or 0 lbs. 4 oz. Cervical length: 5.7 cm. Internal cervical Os: Closed. anatomy: is limited on this examination. If anatomic abnormality is clinically suspect,a dedicated level II obstetrical ultrasound would be recommended. IMPRESSION: 1. Single, live intrauterine dated at 15 weeks, 0 day(s). 2. heart rate measured at 138 bpm. 3. The placenta is posterior in location and low lying in appearance. Electronically signed by: Cuong Dominguez MD 04/21/2024 12:35 PM EDT Signature Line Signed (Electronic Signature):Alberto ROLON, Cuong Bangura RA Signed Date/Time04.21.2024 12:35 This document has an image . Notes: Patient laboratory and radiology studies were reviewed and shared with the patient. Explained to the patient that the studies conducted today do not show any acute findings that would warrant admission. Instructed patient to follow up outpatient and return to the ED if any new or worsening symptoms. The patient voiced verbal understanding and was comfortable with this plan. The patient wasprovided education materials upon discharge relevant to today's complaint and findings. . Reexamination/ Reevaluation Time: 25-Apr-2024 10:28:00 . Vital signs per nurse's notes Course: unchanged. Pain status: unchanged. Assessment: exam unchanged. Impression and Plan Diagnosis Acute lower UTI : [id number] N39.0, Discharge, Medical Plan Condition: Stable. Disposition: Discharged: Time 25-Apr-2024 10:40:00, to home. Prescriptions: Launch prescriptions Pharmacy: Keflex 500 mg oral capsule (Prescribe): 500 mg, 1 cap(s), Oral, q8h, 21 cap(s), 0 Refill(s). Patient was given the following educational materials: Urinary Tract Infection, Adult, [id number], Urinary Tract Infection, Adult, [id number]. Follow up with: Karla Fabian In 1 week 02-May-2024; Marcel Javed In 2 days 27-Apr-2024. Counseled: Patient, Family, Regarding diagnostic results. Attestation Scribe Attestation: Kurtis Chapa, 25-Apr-2024 19:27:00, Scribing for and in the presence of, Sergio Hill MD. Physician Attestation: I personally performed the services described in this documentation and reviewed the document that was dictated to the scribe in my presence, and it accurately records my wordsand actions., Sergio Hill MD, 25-Apr-2024 19:27:00. Electronically Signed by 04/25/2024 09:07 PM EDT Sergio Hill MD Patient Care team information Care Team Personnel Name: Karla Fabian Position: Non-System User Member Role: Primary Care Physician Care Team Related Persons Name: SYLVESTER HARPER Address: home
== END 2024-11-02 09:59 | disposition home or self-care (01) ==
PROVIDERS: PCP Obstetrics & Gynecology; Visit Provider Obstetrics & Gynecology
DX: Z34.90 Encounter for supervision of normal pregnancy, unspecified, unspecified trimester (principal); R35.0 Frequency of micturition; R39.16 Straining to void; R39.15 Urgency of urination; R10.2 Pelvic and perineal pain; Z51.89 Encounter for other specified aftercare
CPT/HCPCS: 97110; 97112; 97140; 97161; 97535

== ENCOUNTER 2024-09-27 11:52 | Outpatient (CLI) | payer OTHER, SELFPAY ==
[2024-09-27] VITALS (10 sets, daily range): BP systolic 129–137; BP diastolic 68–85; PULSE 85–112; O2SAT 97
[2024-09-27 12:30] LABS: Hematocrit 35.2 % (33.0-51.0); Hemoglobin* 11.9 gm/dL (12.0-16.0); Mean Corpuscular HGB Conc 34 gm/dL (32-36); Mean Corpuscular Hemoglobin 30 pg (26-34); Mean Corpuscular Volume 88 fL (80-100); Platelet Count* 193 K/uL (140-440); Red Blood Count 4.01 m/uL (4.00-5.20); White Blood Count* 10.15 K/uL (4.50-11.00)
[2024-09-27 12:40] LABS: Slide Review Reflex No
[2024-09-27 12:47] LABS: Alanine Aminotransferase* 13 U/L (4-35); Aspartate Amino Transferase* 20 U/L (12-35); Blood Urea Nitrogen* 5 mg/dL (5-24); Creatinine* 0.4 mg/dL (0.5-1.5); Estimated Glomerular Filt Rate 136 ml/min
--- NOTE | 2024-09-27 15:05 | PC.OBNST ---
NST Note NST Note Start: 09/27/24 12:01 Freq: ONCE Status: Active Protocol: Document 09/27/24 14:50 CUDDYH (Rec: 09/27/24 15:05 CUDDYH [id number]) NST Note 1 Para (# of births) 0 EDC 10/15/24 Gestational Age In Weeks & Days 37 Weeks & 3 Days Other Complaints Blood pressure issues. Reactive Yes Appropriate for Gestational Age Yes RN Julia Noe RN Date 09/27/24 Reactive Yes Appropriate for Gestational Age Yes RN Dr. Apple Date 09/27/24 OB NST charge Yes Complete NST Note via Write Note Yes The provider's electronic signature indicates the NST is reactive/appropriate for gestational age. *Note to provider: If an addendum is required, open the patient's chart and click on the note under the Nurse/Allied Health tab.
[2024-09-27 15:14] LABS: Creatinine Urine 16.5 mg/dL; Protein Creatinine Ratio Urine 0.91 (0-0.19); Total Protein Urine 15 mg/dL
--- NOTE | 2024-09-27 15:34 | PM.OBLDTN ---
OB - Triage/Final Diagnosis Visit Information Time Seen by Provider: 15:34 Narrative: The patient is a 29 year old 1 para 0 at 37 weeks gestation by LMP, who presents with elevated blood pressure from clinic. 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 Clementine had a single elevated blood pressure in the clinic today. She was transferred to [facility], where she was monitored for several hours. All subsequent blood pressures with were within normal limits. She denies headache, vision changes or right upper quadrant pain. She denies regular/painful uterine contractions, vaginal bleeding or leaking of fluid. Endorses active movement. Extended monitoring was completed, which was entirely reactive and reassuring. Benign physical exam. Preeclampsia labs were obtained, which were found to be within normal limits. After several hours of blood pressure monitoring, her urine protein creatinine ratio had still not returned. I explained that we would not affect delivery based on this result as she does not meet the clinical criteria for hypertensive disorder at this time yet. Home blood pressure cuff was provided, recommend she check her BP daily. Recommend she would notify us immediately present to care with any values of greater than equal to 160/110. Recommend she call if she is having headaches, vision changes, right upper quadrant pain or BP values of greater than equal to 140/90. Patient has her next routine OB visit on 10/03/2024. Strict return precautions were reinforced in the interim. After our visit, higher protein creatinine ratio was noted to return an elevated at 0.9. I called the patient and left her a voicemail, where I would recommend we add in an RN BP check on 09/29/2024 out of abundance of precaution. If she has any further values of greater than 140/90, explained we would proceed with induction of labor in the setting of preeclampsia without severe features. Again, I reaffirmed that she does not meet the criteria for that diagnosis at that time. Strict return precautions reinforced. Task sent to schedulers to coordinate this visit. Evaluation Laboratory results: Laboratory Tests 09/27/24 09/27/24 Range/Units 12:23 12:21 WBC 10.15 (4.50-11.00) K/uL RBC 4.01 (4.00-5.20) m/uL Hgb 11.9 L (12.0-16.0) gm/dL Hct 35.2 (33.0-51.0) % MCV 88 (80-100) fL MCH 30 (26-34) pg MCHC 34 (32-36) gm/dL Plt Count 193 (140-440) K/uL BUN 5 (5-24) mg/dL Creatinine 0.4 L (0.5-1.5) mg/dL Estimated GFR 136 ml/min AST 20 (12-35) U/L ALT 13 (4-35) U/L Urine Creatinine 16.5 mg/dL Protein/Creatinin Ratio 0.91 H (0-0.19) Urine Total Protein 15 mg/dL Vital signs: Vital Signs - 24 hr 09/27/24 12:15 09/27/24 12:30 09/27/24 12:46 Pulse Rate 102 H 93 95 Blood Pressure 136/85 137/80 133/84 Pulse Oximetry 97 09/27/24 13:00 09/27/24 13:15 09/27/24 13:31 Pulse Rate 94 86 102 H Blood Pressure 129/76 134/79 130/82 Pulse Oximetry 09/27/24 13:45 09/27/24 14:01 09/27/24 14:16 Pulse Rate 85 86 90 Blood Pressure 134/68 129/79 135/77 Pulse Oximetry 09/27/24 14:31 Pulse Rate 85 Blood Pressure 134/74 Pulse Oximetry Fetus (Single) Heart Rate Baseline: 120 Appliances Sample Maker Variability: Moderate (6-25) Monitor Accelerations: Absent Monitor Decelerations: None Final Diagnosis (1) Elevated blood pressure reading without diagnosis of hypertension: Status: Acute
== END 2024-09-27 14:50 | disposition home or self-care (01) ==
LOC: OB OUT 11:52 → OB 11:54
PROVIDERS: Obstetrics & Gynecology; Visit Provider Obstetrics & Gynecology
DX: O26.893 Other specified pregnancy related conditions, third trimester (principal); R03.0 Elevated blood-pressure reading, without diagnosis of hypertension; Z3A.37 37 weeks gestation of pregnancy
CPT/HCPCS: 36415; 59025; 82565; 82570; 84156; 84450; 84460; 84520; 85027; G0463

== ENCOUNTER 2024-09-29 13:53 | Inpatient (IN) | payer OTHER, SELFPAY ==
[2024-09-29] VITALS (7 sets, daily range): BP systolic 117–146; BP diastolic 59–86; PULSE 81–97; RESP 14–16; TEMP 36.6–37.1; O2SAT 98; BMI 33.7
[2024-09-29 14:57] LABS: Blood Urea Nitrogen* 7 mg/dL (5-24); Creatinine* 0.4 mg/dL (0.5-1.5); Estimated Glomerular Filt Rate 136 ml/min
[2024-09-29 14:58] LABS: Alanine Aminotransferase* 19 U/L (4-35); Aspartate Amino Transferase* 40 U/L (12-35)
[2024-09-29 15:09] LABS: Hematocrit 32.4 % (33.0-51.0); Hemoglobin* 11.4 gm/dL (12.0-16.0); Mean Corpuscular HGB Conc 35 gm/dL (32-36); Mean Corpuscular Hemoglobin 30 pg (26-34); Mean Corpuscular Volume 86 fL (80-100); Platelet Count* 207 K/uL (140-440); Red Blood Count 3.75 m/uL (4.00-5.20)
[2024-09-29 15:10] LABS: Slide Review Reflex No
[2024-09-29] MEDS: ACETAMINOPHEN 500 MG TABLET 1000 MG PO (16:21)
--- NOTE | 2024-09-29 22:39 | W.PM.LDBA ---
Subjective History of Present Illness Time Seen by Provider: 17:00 Date Seen: 09/29/24 Narrative: Patient is being admitted to Labor and Delivery for delivery due to preeclampsia without severe features. She is a 29 year old at 37.5 weeks gestation. Her full history and physical was dictated by Dr. Kurt Lim on 09/27/24. Please see this for details. Active movements. Minimal contractions - nontender. Denies LOF, vaginal bleeding or abnormal vaginal discharge. Patient had her 1st mild ranging blood pressures on 09/27/2024 and had a protein creatinine ratio 0.91. She had no additional elevated blood pressures after that and was sent home for close follow-up. Her blood pressure was 158/88 today. She has a headache that resolved with Tylenol. Denies any persistent headache, vision changes, SOB, right upper quadrant/epigastric pain, or rapidly expanding edema. She met criteria for preeclampsia without severe features. Given her gestational age of > 37 weeks, I recommend delivery. Cervical exam: Closed/thick/high, moderately soft, posterior. Bedside ultrasound performed due to inability to palpate head vaginally. Beside ultrasound showed fetus is transverse, back down, head to maternal right. Fluid visually normal. Active movements ultrasound. Patient reports that she's always felt head to the maternal right despite 36 week ultrasound calling presentation cephalic. I discussed with patient that 3-4% of pregnancies are breech/malpresented at term.? If there is a concern in for malpresentation, we assessed with ultrasound at 36 weeks.? If the fetus continues to be breech at 36 weeks, she has the option of attempting an external cephalic version at 37 weeks.? We discussed the rationale for doing the procedure at 37 weeks (technically feasible, fetus is term should delivery be indicated, and lower risk of reversion). Contraindication to external cephalic version is anything that is a contraindication to vaginal delivery such as a placenta previa, multiple previous CD etc. Patient doesn?t have any contraindications. The benefit of an external cephalic version is fewer delivery.? There is a lower odd of endometritis, sepsis, hospital stay greater than 7 days.? It is important to know that there is no difference for low APGARs, low umbilical vein pH, and when comparing external cephalic version with subsequent vaginal delivery to planned delivery at term. The risks of external cephalic version: heart rate changes (most common in stabilizes when procedure is discontinued). ?Overall, serious adverse effects are very low, all < 1%.? These include placental abruption, umbilical cord prolapse, rupture of membranes, stillbirth, maternal hemorrhage.? The risk of an emergency delivery is also low. We discussed factors affecting success.? The overall success rate quoted in the literature is 58%.? Factors that her favorable towards a successful external cephalic version are increased parity, transverse or oblique presentation, normal amniotic volume, normal maternal BMI, and posterior placental location. Her personal favorable factors are: transverse presentation, normal amniotic volume, normal BMI, and posterior placental location. Factors not in her favor: nulliparity, suspected macrosomia. Even if we are successful with ECV, it does not mean vaginal delivery is guaranteed. Given that she has always felt head at right upper quadrant, there's never been much pressure on her cervix to cause cervical change. This means that her IOL might be very prolonged. After discussion, she declined ECV and desire delivery. The patient was consented for section and blood. She understands that the four main categories of risk include pain, bleeding, infection, and damage to surrounding structures. Intraoperative pain will be manage with spinal anesthesia or epidural anesthesia. If that those are not effective or not appropriate for the clinical situation, general anesthesia will be administered. She is aware that her spinal might be difficult to place due to her scoliosis. Immediately postop, TAP block will be performed. Throughout her recovery course, she will have on PO pain medications such as ibuprofen, Tylenol, and oxycodone. Regarding infection, she understands that we will be delivering appropriate antibiotics, however that the risk of infection following section still is approximately 5%. She understands that though the risk is very low that there is always a risk of damage to the bladder, uterus, ovaries, fallopian tubes, bowels, ureters, or even the fetus. She understands that most injuries can be addressed at the time of surgery, however, such an injury may require additional surgeries to fix. She understands that a section carries a risk of bleeding, and that while this bleeding can be addressed with multiple medical and surgical modalities (including hysterectomy), that there is the possibility of needing a blood transfusion. She reports she would accept a blood transfusion understanding the risks of a 1/200,000 risk of Hepatitis and 1/2,000,000 risk of HIV as well as the risk of having an allergic reaction to the blood products. She further understands that this reaction is typically mild, however can be severe including respiratory distress and necessitating ICU-level care. Lastly, she understands that a section does increase risks for future pregnancies and deliveries including, but not limited to, the risk of uterine rupture or placenta accreta. We discussed given position, she is at high risk for needed classical delivery or T incision. If she has a classical or T incision, she will not be eligible for TOLAC and needs to be delivery at 36-37 weeks. We also reviewed postoperative care, recovery, and restrictions. All questions answered to the best of the abilities. She is meets NPO criteria at 2 am. Will schedule her primary for first case tomorrow given her stable status. NPO at 2300. Labs at 0500. She is happy with this plan. Specific Issues/Plans Partner: Reed. Baby: Boy! [place] H&P: by CGM on 09/27/24 # Elevated BP without HTN - 09/27 one elevated BP in clinic, all normal in triage # Proteinuria [ ] RN BP check on 09/29 - Would meet HTN diagnosis with any future elevated values #GBS+ in urine - intrapartum ampicillin # malpresentation at 34 weeks Growth US and presentation US at 36 weeks-VERTEX! EFW: 95%, AC:>97% # Last pap: 03/03/2024 LGSIL, cannot R/O HGSIL, +HPV other high risk types. colpo at [place] on 04/07/2024: no record of path result. pap with colpo at 6 weeks #Low Lying Placenta - 1.1cm from os on 05/25, RESOLVED 07/24/24 9.8cm from the os. 07/24/2024: See results below Recommended pelvic rest #Bilateral choroid plexus cysts low risk NIPT otherwise normal level 2 US, suspected normal variant #?Maternal history of congenital heart disease -?PFO or VSD that resolved spontaneously Attempted to get outside records from [place] No echo recommended per [facility] # Maternal scoliosis Patient requested Anesthesia consult: order placed 06/28/2024 #Rh negative rhogam at 28 weeks on 07/24/2024 #Anti-Consuelo a antibodies at 28 weeks. Clinically insignificant. Imaging: - Level 2 US: EFW 323g, normal detailed anatomy aside from bilateral choroid plexus cysts. Suspected normal variant given low risk NIPT. No further testing recommended. - 07/24/24: Breech, SDP 4.9cm. Bilateral choroid plexus cysts have resolved. Posterior placenta 9.8cm from the os. EFW 1247 g, 2 lb 12 oz, 54%. BPD 87%, 41%, AC 56%, FL 36%. - 09/20/24: Vertex presentation, single deepest pocket of amniotic fluid 7.9 cm, BPD: 65 percentile, HC: 94 percentile, AC: More than the 97th percentile, femur length: 23 percentile, EFW: 3499 g, 95th percentile. Vaccinations: Covid: Received in NH; 07/10/2024 Flu: 06/28/2024 Tdap: Declined RSV: Declined Hep B: 06/28/2024 32 week mental health: PHQ-9 3, HOLLY-7 1. 34 week Hgb: [] OB - Problem Based A/P Additional Plan (1) Pre-eclampsia: Status: Acute (2) malpresentation: Status: Resolved (3) Scoliosis: Status: Acute (4) : Status: Acute (5) Rh negative, maternal: Status: Acute (6) Family history of congenital heart disease: Status: Acute (7) Congenital heart disease: Problem details: unknown congenital heart disease. Possible VSD that self resolved. Status: Acute (8) Heart murmur: Problem details: patient reports normal echo Status: Acute (9) History of abnormal cervical Pap smear: Problem details: 03/2024: LGSIL cannot r/o HGSIL/+HPV (not 16/18) 04/07/24: colposcopy: endocervical mucosa w/ limited squamous mucosa for evaluation Status: Acute Plan Pre-Eclampsia without severe features ? Based on mild range in blood pressures with protein creatinine ratio of 0.91 ? BPs [id number] ? Symptoms: Headache resolved with Tylenol ? Magnesium: currently no indicated, ? IV antihypertensives: currently not indicated ? Pre-eclampsia labs on 09/29/24: Hgb 11.4 Plt 207 ALT 19 AST 40 Delivery/Labor/Induction Plan Plan: Section (Primary delivery due to malpresentation at term) OB Exam Physical Exam Vital signs: Temp Pulse Resp BP Pulse Ox 98.2 F 93 14 144/86 H 98 09/29/24 21:06 09/29/24 21:06 09/29/24 21:06 09/29/24 21:06 09/29/24 14:04 Narrative: Physical exam: General: No acute distress Psych: Alert and oriented x4, full affect HEENT: Normocephalic, atraumatic Lungs: Unlabored breathing Abdomen: Gravid, soft, no tenderness, rebound, or guarding. head easily palpated at RUQ. Skin: No lesions or rashes Lower extremities: No edema or erythema Pelvic exam: Dry perineum. Shannan/thi/hi, moderate soft, posterior.
[2024-09-30] VITALS (21 sets, daily range): BP systolic 105–141; BP diastolic 60–85; PULSE 69–86; RESP 16–18; TEMP 36.4–36.9; O2SAT 93–99
[2024-09-30] MEDS: LACTATED RINGERS 1000 ML 1,000 ML IV (06:10)
[2024-09-30 06:26] LABS: Hematocrit 35.9 % (33.0-51.0); Hemoglobin* 12.2 gm/dL (12.0-16.0); Mean Corpuscular HGB Conc 34 gm/dL (32-36); Mean Corpuscular Hemoglobin 30 pg (26-34); Mean Corpuscular Volume 88 fL (80-100); Platelet Count* 208 K/uL (140-440); Red Blood Count 4.07 m/uL (4.00-5.20); White Blood Count* 10.27 K/uL (4.50-11.00)
[2024-09-30 06:27] LABS: Slide Review Reflex No
[2024-09-30 06:33] LABS: Alanine Aminotransferase* 16 U/L (4-35); Aspartate Amino Transferase* 24 U/L (12-35); Blood Urea Nitrogen* 6 mg/dL (5-24); Creatinine* 0.5 mg/dL (0.5-1.5); Est. Creatinine Clearance* 140.78; Estimated Glomerular Filt Rate 129 ml/min
--- NOTE | 2024-09-30 07:36 | W.PM.H&PU ---
History & Physical Update History & Physical Update H&P Reviewed and patient assessed: No changes noted
--- NOTE | 2024-09-30 07:37 | PM.PROC ---
Procedure Note Time Seen by Provider: 08:46 Date Seen: 09/30/24 Date of procedure: 09/30/24 Will [facility] bill your pro fee for this procedure?: Yes Procedure: Preoperative diagnosis: 29-year-old 1 para 0 at 37 and 6/7 weeks Preeclampsia without features Transverse presentation Postoperative diagnosis: Same Procedure: Primary low-transverse section Anesthesia: Spinal Surgeon: Annemarie Sales MD Paint Maker: Riri Acuña MD Quantitative blood loss: 863 mL IV Fluid: 1500 mL UOP: 25 mL, clear urine at the end of the procedure. Specimen: Placenta to pathology Drain(s): Vazquez to gravity Findings: A live male infant was delivered from the footling breech position at 8:10 a.m.. Apgars were 8 at 1 min and 9 at 5 min, respectively. weight: 7 lb 9 oz. Nuchal cord(s): No. The placenta was delivered spontaneously and complete at 8:12 a.m.. Amniotic fluid: Clear. Normal uterus, fallopian tubes and ovaries were noted. Other findings: No abnormalities Procedure: Clementine was taken to the OR where spinal anesthetic was found be adequate. A Vazquez catheter was placed. The patient was then placed in the dorsal supine position with a leftward tilt. She was then prepped and draped in a normal sterile manner. A Pfannenstiel skin incision was made and carried through sharply to the underlying layer of fascia. Fascia was incised in the midline and this incision carried laterally with Matthews scissors. The superior aspect of fascial incision was grasped with Howard clamps, tented up, and the rectus muscles dissected off with a combination of blunt and sharp dissection. The inferior aspect of the fascial incision was grasped with Howard clamps, tented up and again the rectus muscles dissected off with a combination of blunt and sharp dissection. The rectus muscles were in the midline. The peritoneum was entered bluntly. This opening was extended bluntly. An Kurtis-O self-retaining retractor was placed. A bladder flap was not created. Uterus was incised in a low transverse manner in the midline. This incision carried laterally with blunt pressure on the inferior and superior aspects of the uterine incision. The amniotic sac was ruptured. The infant's head and body was delivered atraumatically. The infant was shown to the patient and her support person and then handed to waiting pediatric and nursing staff. The placenta was delivered spontaneously. The uterus was cleared of clots and debris. The uterine incision was re-approximated with the uterus in vivo. The 1st layer using 0-Vicryl in a running, locked manner. The 2nd layer using 0-Monocryl in a running, vertical, imbricating layer. Additional sutures needed for hemostasis: Yes: Figure of 8 suture using 2-0 chromic. Excellent hemostasis was verified. The Kurtis retractor was removed. The rectus muscles were not reapproximated. The rectus muscles were then closely inspected to verify hemostasis. Hemostasis was obtained with bipolar cautery. The fascia was then re-approximated using 0-Maxon loop in a running manner. The subcutaneous tissue was then irrigated with saline and hemostasis obtained with bipolar cautery. The subcutaneous tissue did not require reapproximation. The skin was reapproximated using 3-0 Monocryl in a running subcuticular manner. Exofin skin adhesive and a nap a plaques dressing were applied. The patient tolerated this procedure well. Sponge, lap and instrument counts were correct x2 active to the procedure. Patient was taken to the recovery area in stable condition. The patient received 2 g of IV Ancef prior to skin incision.
[2024-09-30] MEDS: LACTATED RINGERS 1000 ML 1,000 ML 125 ML IV (07:45)
[2024-09-30] MEDS: CEFAZOLIN 2 GM INJ IVP (07:45)
--- NOTE | 2024-09-30 08:21 | W.PM.NB ---
Nerve Block Nerve Block Time Seen by Provider: 08:50 Date Seen: 10/31/24 Type of block requested by surgeon for post-operative analgesia: TAP Side: bilateral Time out performed: Yes Verification of patient name: Yes Verification of date of : Yes Site marking: site marked Name of person performing procedure: Alex Herring Continuous monitoring Was continuous monitoring of O2 sat, B/P, quality assurance monitor final, recorded every 15 minutes?: Yes Procedure Checklist: sterile prep, needles and gloves Ultrasound guided. Images saved: Yes Medications given in 5ml increments after negative aspiration: Marcaine %: 0.25 mL: 30 Needle gauge: 20 and Exparel mL: 10 Needle gauge: 20 Patient tolerated procedure well: Yes Additional comments: Injected in 5ml increments after negative aspiration Block Charges Block Charge (with Pro Fee): TAP Bilateral Use of Ultrasound Machine for Block: Yes- US Guidance/pain block
[2024-09-30] MEDS: KETOROLAC 30 MG/ML inj IVP ×3 (09:00→21:01)
--- NOTE | 2024-09-30 09:13 | W.ANESCHARGE ---
Anesthesia Charges Start Date/Time Anesthesia Start Date: 10/31/24 Anesthesia Start Time: 07:37 Stop Date/Time Anesthesia Stop Date: 10/31/24 Anesthesia Stop Time: 09:01 Coding CPT Codes CPT Codes: ANESTH CS DELIVERY - 32959 ([id number]) P2 - PATIENT W/MILD SYST DISEASE, QZ - DRUG ROOM OPERATOR SVC W/O FAN BLADE TRUER BY
[2024-09-30] MEDS: ACETAMINOPHEN 500 MG TABLET 1000 MG PO ×3 (10:43→23:27)
[2024-09-30] MEDS: OXYCODONE 5 MG TABLET PO ×4 (11:52→21:02)
[2024-09-30] MEDS: LACTATED RINGERS 500 ML 500 ML 125 ML IV (12:35)
[2024-09-30] MEDS: OMEPRAZOLE 20 MG CAPSULE DR PO (14:38)
[2024-09-30] MEDS: SUCRALFATE 1 GM TABLET PO (14:46)
[2024-10-01] VITALS: BP 136/82; PULSE 73; RESP 16; TEMP 36.6; O2SAT 97
[2024-10-01] MEDS: SUCRALFATE 1 GM TABLET PO ×2 (00:08→08:29)
[2024-10-01] MEDS: KETOROLAC 30 MG/ML inj IVP ×3 (03:25→14:59)
[2024-10-01 03:29] VITALS: BP 129/79; PULSE 80; RESP 14; TEMP 36.9; O2SAT 96
[2024-10-01 07:29] LABS: Hemoglobin* 11.7 gm/dL (12.0-16.0); Mean Corpuscular HGB Conc 33 gm/dL (32-36); Mean Corpuscular Hemoglobin 30 pg (26-34); Mean Corpuscular Volume 90 fL (80-100); Platelet Count* 216 K/uL (140-440); Red Blood Count 3.89 m/uL (4.00-5.20); White Blood Count* 10.16 K/uL (4.50-11.00)
[2024-10-01 07:31] LABS: Slide Review Reflex No
[2024-10-01 07:47] LABS: Blood Urea Nitrogen* 7 mg/dL (5-24); Creatinine* 0.5 mg/dL (0.5-1.5); Est. Creatinine Clearance* 140.78; Estimated Glomerular Filt Rate 129 ml/min
[2024-10-01 07:48] LABS: Alanine Aminotransferase* 16 U/L (4-35); Aspartate Amino Transferase* 34 U/L (12-35)
[2024-10-01] MEDS: DOCUSATE SODIUM 100 MG CAPSULE PO (08:29)
[2024-10-01] MEDS: OMEPRAZOLE 20 MG CAPSULE DR PO ×2 (08:29→17:15)
[2024-10-01 09:00] VITALS: BP 131/75; PULSE 78; RESP 16; TEMP 36.7; O2SAT 97
--- NOTE | 2024-10-01 09:09 | PM.OBPNVD1 ---
OB - PN:Subj Subjective Time Seen by Provider: 08:40 Date Seen: 10/01/24 Patient comments OB post-: pain well controlled [place] status: doing well [place] feeding status: exclusively Narrative: HPI: Clementine is POD#1 from a for preeclampsia without severe features with fetus in the footling breech presentation. She states her pain is well controlled. Tolerating regular diet. She is passing flatus. Urinating without difficulty and ambulating well. She is without difficulty. Planning on being discharged home tomorrow. OB - PN: Obj Exam Physical Exam: Vital signs: Temp Pulse Resp BP Pulse Ox O2 Del Method 98.5 F 80 14 129/79 96 Room Air 10/01/24 03:10/01/24 03:10/01/24 03:10/01/24 03:29 10/01/24 03:10/01/24 03:29 Narrative: General: Pleasant, , well groomed woman in no acute distress. Vital signs: Included in her electronic medical record. Heart: Regular rate and rhythm without gallop, rub or murmur. Chest: Clear to auscultation bilaterally. Abdomen: Soft, nontender and nondistended with normal bowel sounds throughout. Fundus firm at 1 cm below the umbilicus in the midline. Incision: Clean, dry and intact with sutures and skin adhesive gel. Extremities: No pain. Trace edema to the ankle bilaterally. OB - PN: Obj Data Labs Labs: Laboratory Results - last 24 hr 10/01/24 07:24 WBC 10.16 RBC 3.89 L Hgb 11.7 L Hct 35.0 MCV 90 MCH 30 MCHC 33 Plt Count 216 BUN 7 Creatinine 0.5 Estimated Creat Clear 140.78 Estimated GFR 129 AST 34 ALT 16 OB - PN: A/P Delivery Assessment and Plan (1) Pre-eclampsia: Status: Acute Assessment and Plan: 1. Blood pressure remains under 140/90 without antihypertensive medication. 2. Preeclampsia labs completely normal today so I will not repeat them tomorrow. (2) malpresentation: Status: Resolved (3) Scoliosis: Status: Acute (4) : Status: Acute (5) Rh negative, maternal: Status: Acute (6) Family history of congenital heart disease: Status: Acute (7) Congenital heart disease: Problem details: unknown congenital heart disease. Possible VSD that self resolved. Status: Acute (8) Heart murmur: Problem details: patient reports normal echo Status: Acute (9) History of abnormal cervical Pap smear: Problem details: 03/2024: LGSIL cannot r/o HGSIL/+HPV (not 16/18) 04/07/24: colposcopy: endocervical mucosa w/ limited squamous mucosa for evaluation Status: Acute
[2024-10-01 12:45] VITALS: BP 137/74; PULSE 83; RESP 18; TEMP 36.6; O2SAT 97
[2024-10-01] MEDS: OXYCODONE 5 MG TABLET PO ×3 (12:52→21:11)
[2024-10-01] MEDS: ACETAMINOPHEN 500 MG TABLET 1000 MG PO (12:52)
[2024-10-01 17:00] VITALS: BP 120/70; PULSE 80; RESP 18; TEMP 36.9; O2SAT 99
[2024-10-01 20:26] LABS: Rapid Plasma Reagin (RPR) Non Reactive (Non Reactive)
[2024-10-01 20:52] VITALS: BP 138/76; PULSE 83; RESP 14; TEMP 36.9; O2SAT 97
[2024-10-01] MEDS: IBUPROFEN 600 MG TABLET PO (21:12)
[2024-10-02] VITALS (7 sets, daily range): BP systolic 119–147; BP diastolic 70–80; PULSE 79–97; RESP 14–16; TEMP 36.4–37.1; O2SAT 96–97
[2024-10-02] MEDS: ACETAMINOPHEN 500 MG TABLET 1000 MG PO ×4 (01:09→23:12)
[2024-10-02] MEDS: IBUPROFEN 600 MG TABLET PO ×3 (02:46→18:21)
[2024-10-02] MEDS: OXYCODONE 5 MG TABLET PO ×3 (05:36→20:52)
--- NOTE | 2024-10-02 07:46 | PM.OBDSVD1 ---
DS: Providers Provider Date Seen: 10/02/24 Date of admission: 09/29/24 13:53 Primary care physician: Kandice Acuña MD Admitting Clinician: Kandice Acuña MD Attending Physician on discharge: Andrea Morales CNM Date of Discharge: 10/02/24 DS: Diagnosis Discharge Diagnosis (1) Status post primary low transverse section: Status: Acute Problem details: Footling breech, 37w6d, 7#9oz, Apgars 8/9. [place] (2) care and examination of lactating mother: Status: Acute (3) Pre-eclampsia: Status: Acute Exam Narrative: Exam Narrative: VSS. ?AfebrileGENERAL APPEARANCE: ?normal affect, alert, no distress MOOD: ?appropriate HEENT: normocephalic, neck supple, full ROM CHEST: ?Symmetrical chest wall movement. ?Normal respiratory effort. ?Clear to auscultation HEART: ?regular rate and rhythm ABDOMEN: ?soft, non-tender. Uterine fundus is firm, 1 below Umbilicus, Midline and is appropriate for the stage of recovery. ?Bowel sounds present. EXTREMITIES: ?normal and trace edema SKIN: warm, dry. ? ?Incision clean/dry/well approximated. ?No signs of infection noted. Const: Vital Signs, click to edit/add: Vital Signs - 24 hr 10/01/24 09:00 10/01/24 12:45 10/01/24 17:00 Temperature 98.1 F 97.9 F 98.4 F Pulse Rate [Pulse Oximeter] 78 83 80 Respiratory Rate 16 18 18 Blood Pressure [Le ft Arm] 131/75 137/74 120/70 Pulse Oximetry 97 97 99 Oxygen Delivery Me thod Room Air Room Air Room Air 10/01/24 20:52 10/02/24 01:01 10/02/24 05:44 Temperature 98.5 F 98.7 F 97.7 F Pulse Rate [Pulse Oximeter] 83 89 79 Respiratory Rate 14 14 14 Blood Pressure [Le ft Arm] 138/76 119/70 134/80 Pulse Oximetry 97 96 96 Oxygen Delivery Me thod Room Air Room Air Room Air Documenting provider has reviewed patient's vital signs: yes OB - DS: Summary Hospital Course Hospital Course: Clementine is a 29 y.o. who was admitted to [facility] & [facility] for induction of labor found to be breech on admission. ?She had an uncomplicated primary .?The patient feels well. ?The pain is well controlled with current medications. ?She has no new complaints. ?She is breast feeding and reports things are going well.? the patient has done well.? Vitals have been stable.? She has remained afebrile.? Has a good appetite, is tolerating a general diet. ?She is voiding without difficulty.? She is passing gas and has had a bowel movement.? She is ambulating and denies any dizziness.? Has Small amount of rubra lochia. ?She is undecided on what she is planning for prevention. Peripartum Data delivery method: Primary C/S; Non-Labored Procedures: Procedures Operation Date: 09/30/24 07:30 Actual Procedure Side Surgeon p Primary Section Annemarie Sales MD complications: none Gender: Male Infant Discharge Plan: Home Status at Discharge Functional status at discharge: independent ambulation Overall status at discharge: patient is progressing back to baseline Time Spent with Patient Time attestation: Total time spent providing and/or coordinating discharge services: Time spent: Less than 30 minutes Discharge Plan Discharge Disposition: Home, Self-Care Date of Admission: 09/29/24 13:53 Attending Provider on Discharge: Andrea Morales Primary Care Provider: Kandice Acuña Condition: Stable Anticipated Discharge Date/Time: 10/02/24 12:00 Discharge Medications: New acetaminophen 500 mg Tablet 1,000 mg PO Q6H PRN (Reason: Pain) Qty: 0 0RF docusate sodium 100 mg Capsule 100 mg PO BID PRNQty: 90 0RF ibuprofen 600 mg Tablet 600 mg PO Q6H PRN (Reason: Pain) Qty: 60 0RF oxycodone 5 mg Tablet 5 - 10 mg PO Q4H PRN (Reason: Pain) Qty: 10 0RF Continued [id number] 3-fat com #1 27-1-300 mg capsule 1 cap PO DAILY Unisom (doxylamine) 25 mg tablet 25 mg PO QDAY PRN Vitamin B-6 50 mg capsule 50 mg PO QDAY PRN Discharge Orders: Discharge Order (Routine); Ordered 10/02/24 Ordered By: Andrea Morales Patient Education: OB Over the Counter Medication Information, OB /Breast Feeding Additional Instructions: Discharge instructions were reviewed with the patient including signs and symptoms of infection and home going medications Lifting Restrictions: 20 pounds for 6 weeks No not submerge incision under water X 2 weeks? Nothing vaginally for 6 weeks: no tampons or intercourse Do not drive while taking narcotic pain medication(s) Off Work or School for 8 weeks [facility] for a BP check?10/05/24 Call with BP greater than or equal to 150/100 2-week visit: incision check, discuss infant feeding concerns, review control options and screen for anxiety/depression. 6-week visit for an annual exam. consultation services are available to all mothers and babies for the first year after delivery.? To make an appointment, please call [phone]. Activity Level: Activity as Tolerated Discharge Diet: Regular Follow Up Appointments: [facility] [Provider Group] Forms: [employer] Info Instructions
[2024-10-02] MEDS: OMEPRAZOLE 20 MG CAPSULE DR PO (07:51)
[2024-10-02] MEDS: DOCUSATE SODIUM 100 MG CAPSULE PO (09:37)
[2024-10-02 10:06] LABS: Mean Corpuscular HGB Conc 33 gm/dL (32-36); Mean Corpuscular Hemoglobin 30 pg (26-34); Mean Corpuscular Volume 90 fL (80-100); Platelet Count* 247 K/uL (140-440); Red Blood Count 3.66 m/uL (4.00-5.20); White Blood Count* 10.45 K/uL (4.50-11.00)
[2024-10-02 10:08] LABS: Slide Review Reflex No
[2024-10-02 10:19] LABS: Alanine Aminotransferase* 16 U/L (4-35); Aspartate Amino Transferase* 27 U/L (12-35); Blood Urea Nitrogen* 7 mg/dL (5-24); Creatinine* 0.6 mg/dL (0.5-1.5); Est. Creatinine Clearance* 117.31; Estimated Glomerular Filt Rate 123 ml/min
[2024-10-02] MEDS: NIFEdipine 30 MG TAB.ER.24 PO (11:48)
[2024-10-03] MEDS: IBUPROFEN 600 MG TABLET PO ×2 (01:25→07:57)
[2024-10-03] MEDS: OXYCODONE 5 MG TABLET PO ×3 (01:25→13:08)
[2024-10-03 01:26] VITALS: BP 121/74; PULSE 82; RESP 14; O2SAT 96
[2024-10-03 04:40] VITALS: BP 127/73; PULSE 82; RESP 14; TEMP 36.7; O2SAT 96
[2024-10-03] MEDS: ACETAMINOPHEN 500 MG TABLET 1000 MG PO ×2 (04:53→13:08)
[2024-10-03] MEDS: OMEPRAZOLE 20 MG CAPSULE DR PO (07:58)
--- NOTE | 2024-10-03 08:12 | PM.OBDSVD1 ---
DS: Providers Provider Date Seen: 10/03/24 Date of admission: 09/29/24 13:53 Primary care physician: Kandice Acuña MD Admitting Clinician: Kandice Acuña MD Attending Physician on discharge: Micah DOWNEY ACNAzalia Date of Discharge: 10/03/24 DS: Diagnosis Discharge Diagnosis (1) care and examination of lactating mother: Status: Acute (2) Status post primary low transverse section: Status: Acute Problem details: Footling breech, 37w6d, 7#9oz, Apgars 8/9. [place] (3) Pre-eclampsia: Status: Acute Exam Narrative: Exam Narrative: GENERAL APPEARANCE:? normal affect, alert, no distress MOOD:? appropriate CHEST:? clear to auscultation HEART:? regular rate and rhythm ABDOMEN:? soft, non-tender the uterine fundus is 2 cm below Umbilicus, Midline and is appropriate for the stage of recovery. EXTREMITIES:? normal and minimal edema Incision: Healing well, no surrounding erythema, abnormal induration or discharge one 2-3 cm bruise inferior from incision. Const: Vital Signs, click to edit/add: Vital Signs - 24 hr 10/02/24 09:14 10/02/24 11:42 10/02/24 13:38 Temperature 98.2 F Pulse Rate [Pulse Oximeter] 81 79 82 Respiratory Rate 16 16 16 Blood Pressure [Le ft Arm] 147/79 H 139/80 120/74 Pulse Oximetry 97 97 97 Oxygen Delivery Me thod Room Air Room Air Room Air 10/02/24 16:01 10/02/24 20:40 10/03/24 01:26 Temperature 98.0 F 97.6 F Pulse Rate [Pulse Oximeter] 97 79 82 Respiratory Rate 16 14 14 Blood Pressure [Le ft Arm] 136/78 133/78 121/74 Pulse Oximetry 96 96 96 Oxygen Delivery Me thod Room Air Room Air Room Air 10/03/24 04:40 Temperature 98.1 F Pulse Rate [Pulse Oximeter] 82 Respiratory Rate 14 Blood Pressure [Le ft Arm] 127/73 Pulse Oximetry 96 Oxygen Delivery Me thod Room Air OB - DS: Summary Hospital Course Hospital Course: Clementine is a 29 y.o. who was admitted to L & D for induction of labor found to be breech on admission. ?She had an uncomplicated primary .?The patient feels well. ?The pain is well controlled with current medications. ?She has no new complaints. ?She is breast feeding and reports things are going well.? the patient has done well.? BP elevated yesterday and patient was started on oral Nifedipine XR. Only one mild elevation since initiating that medication. To continue it after discharge. No MAYORGA, vision changes or RUQ pain. Vitals otherwise have been stable.? She has remained afebrile.? Has a good appetite, is tolerating a general diet. ?She is voiding without difficulty.? She is passing gas and has had a bowel movement.? She is ambulating and denies any dizziness.? Has Small amount of rubra lochia. ?She is undecided on what she is planning for prevention. ?? Problems: GHTN PP? Discharge home with baby.? Follow up in 3 days, 2 weeks and 6 weeks.? , may see if needed? Hgb 11.0. ? Pre-E diagnosed by elevated BP greater than 4 hours apart? Labs WNL or stable with trending? Discharge home with BP cuff if does not already have one? Follow up in 3-5 days? Call for signs/symptoms of preeclampsia? Continue Nifedipine until otherwise instructed Peripartum Data Infant delivery method: Primary C/S; Non-Labored Procedures: Procedures Operation Date: 09/30/24 07:30 Actual Procedure Side Surgeon p Primary Section Annemarie Sales MD [place] Infant Gender: Male Infant Discharge Plan: Home Status at Discharge Overall status at discharge: patient is progressing back to baseline Time Spent with Patient Time attestation: Total time spent providing and/or coordinating discharge services: Time spent: Less than 30 minutes Discharge Plan Discharge Disposition: Home, Self-Care Date of Admission: 09/29/24 13:53 Attending Provider on Discharge: Nguyen Waldron Primary Care Provider: Kandice Acuña Condition: Stable Anticipated Discharge Date/Time: 10/02/24 12:00 Discharge Medications: New acetaminophen 500 mg Tablet 1,000 mg PO Q6H PRN (Reason: Pain) Qty: 0 0RF docusate sodium 100 mg Capsule 100 mg PO BID PRNQty: 90 0RF ibuprofen 600 mg Tablet 600 mg PO Q6H PRN (Reason: Pain) Qty: 60 0RF oxycodone 5 mg Tablet 5 - 10 mg PO Q4H PRN (Reason: Pain) Qty: 10 0RF nifedipine 30 mg Tablet Extended Release 24hr 30 mg PO DAILY Qty: 60 0RF Continued NUA-xlww-TG-omega 3-fat com #1 27-1-300 mg capsule 1 cap PO DAILY Unisom (doxylamine) 25 mg tablet 25 mg PO QDAY PRN Vitamin B-6 50 mg capsule 50 mg PO QDAY PRN Discharge Orders: Discharge Order (Routine); Ordered 10/03/24 Ordered By: Nguyen Waldron Patient Education: OB High Blood Pressure DC, OB Over the Counter Medication Information, OB /Breast Feeding Additional Instructions: Discharge instructions were reviewed with the patient including signs and symptoms of infection and home going medications Lifting Restrictions: 20 pounds for 6 weeks No not submerge incision under water X 2 weeks? Nothing vaginally for 6 weeks: no tampons or intercourse Do not drive while taking narcotic pain medication(s) Off Work or School for 8 weeks [facility] for a BP check?10/05/24 Take blood pressure 2x daily and record it. Call with BP greater than or equal to 150/100 2-week visit: incision check, discuss feeding concerns, review control options and screen for anxiety/depression. 6-week visit for an annual exam. consultation services are available to all mothers and babies for the first year after delivery.? To make an appointment, please call [phone]. Activity Level: Activity as Tolerated Discharge Diet: Regular Follow Up Appointments: [facility] [Provider Group] Forms: [employer] Info Instructions
[2024-10-03 09:00] VITALS: BP 124/73; PULSE 87; RESP 16; TEMP 36.8; O2SAT 96
[2024-10-03] MEDS: NIFEdipine 30 MG TAB.ER.24 PO (09:43)
--- NOTE | 2024-10-12 10:24 | P.NB_ITS ---
Nerve Block Nerve Block Time Seen by Provider: 08:55 Date Seen: 09/30/24 Type of block requested by surgeon for post-operative analgesia: TAP Side: bilateral Time out performed: Yes Verification of patient name: Yes Verification of date of : Yes Site marking: site marked Name of person performing procedure: Alex Herring Continuous monitoring Was continuous monitoring of O2 sat, B/P, residential monitor, recorded every 15 minutes?: Yes Procedure Checklist: sterile prep, needles and gloves Ultrasound guided. Images saved: Yes Medications given in 5ml increments after negative aspiration: Marcaine %: 0.25 mL: 30 Needle gauge: 20 and Exparel mL: 10 Needle gauge: 20 Patient tolerated procedure well: Yes Additional comments: Injected in 5ml increments after negative aspiration Block Charges Block Charge (with Pro Fee): TAP Bilateral Use of Ultrasound Machine for Block: Yes- US Guidance/pain block
== END 2024-10-03 13:20 | disposition home or self-care (01) | DRG 788 ==
PROVIDERS: Advanced Practice Midwife; Obstetrics & Gynecology; Admitting Provider Obstetrics & Gynecology; PCP Obstetrics & Gynecology; Visit Provider Obstetrics & Gynecology
PROC: 10D00Z1 Extraction of Products of Conception, Low, Open Approach (ICD-10-PCS; CPT 59514; principal; 2024-09-30 07:15)
DX: O64.8XX0 Obstructed labor due to other malposition and malpresentation, not applicable or unspecified (principal); O14.04 Mild to moderate pre-eclampsia, complicating childbirth; O99.824 Streptococcus B carrier state complicating childbirth; Z3A.37 37 weeks gestation of pregnancy; Z37.0 Single live birth; G89.18 Other acute postprocedural pain; O13.5 Gestational [pregnancy-induced] hypertension without significant proteinuria, complicating the puerperium; M41.9 Scoliosis, unspecified; O26.893 Other specified pregnancy related conditions, third trimester; Z67.41 Type O blood, Rh negative; Z82.79 Family history of other congenital malformations, deformations and chromosomal abnormalities; Z87.42 Personal history of other diseases of the female genital tract; R01.1 Cardiac murmur, unspecified; R51.9 Headache, unspecified; Q24.9 Congenital malformation of heart, unspecified
CPT/HCPCS: 01961; 36415; 64488; 76815; 76942; 82565; 84450; 84460; 84520; 85025; 85027; 86592; 86850; 86900; 86901; 88307; A4314; A9270; J0665; J0666; J0690; J1885; J2371; J2405; J2590; J7120

== ENCOUNTER 2024-10-04 22:43 | Inpatient (IN) | payer OTHER, SELFPAY ==
--- OUTSIDE RECORDS SUMMARY | 2024-10-04 22:45 | XMS_ITS | Clinical Summary ---
Author Organization [facility] Address [address] [place] [address] Care Team Providers Care Manufacturing Maintenance Manager Name Role Phone Unavailable Primary Care Provider Unavailabl e Source Comments Patient records contain information from all sites at [facility]. For routine questions regarding patient records, call [phone] during business hours, M-F 8:00 AM - 5:00 PM Central Time. Record requests for emergency care only can be directed to [phone] at any time.[facility] Allergies Active Allergy Reactions Criticality Noted Date Comments Codeine Other (see comments),Palpitations Medium 06/25/2022 high heart rate and passed out Medications omega-3 fatty acids 1,000 mg capsule Take 1,000 mg by mouth daily. Active fksxesi-Qi-hmym -FA 27 mg iron- 1 mg tablet Take 2 tablets by mouth daily. Active Family History Medical History Relation Name Comments [...] drink = 0.6 oz pur e alcohol) [facility] Utilities Answer Date Recorded In the past 12 months has e electric, gas, oil, or water company threatened [...] your living situation today? I have a [facility] place to live 05/18/2024 Estimated Date of Delivery Comme nts Yes 10/15/2024 Based on last me nstrual period of 01/09/2024 Sex and Gender Information Value Date Recorded Sex Assigned at Female 05/18/2024 8:53 PM CDT Legal Sex Female 8:59 AM MANAGER CLINIC Gender Identity Female 05/18/2024 8:53 PM CDT Sexual Orientation Straight 05/18/2024 8: 53 PM CDT Last Filed Vital Signs Vital Sign Reading Time Taken Comments Blood Pressure 128/80 05/25/2024 11:02 AM CDT Pulse 94 05/25/2024 11:02 AM CDT Temperature 36.3 C (97.3 F) 05/25/2024 11:02 AM CDT Respiratory Rate 16 07/05/2023 9:28 AM MANAGER CLINIC Oxygen Saturation 99% 05/25/2024 11:02 AM CDT Inhaled Oxygen Concentration - - Weight 77 kg (169 lb 12.1 oz) 05/25/2024 11:02 A M CDT Height - - Body Mass Index - - Plan of Treatment Health Maintenance Due Date Last Done Comments HIV Screening 1993 Hepatitis C Screening 1993 DTaP,Tdap,and Td Vaccines (7 - Tdap) 03/09/2018 03/09/2008, 04/30/2000, 02/13/1998, Additional history exists COVID-19 Vaccine (2023- season) 2024 Influenza Vaccine (#1) 2024 07/05/2020 Depression Screening (Annual PHQ-2) 08/02/2024 Cervical/Vaginal Cancer Screening 03/03/2027 03/03/2024, 03/03/2024 Hepatitis B Vaccines Completed 03/27/2022, 05/16/20 21 HPV Vaccines Aged Out No longer eligi ble based on patient's age to complete this topic IPV Vaccines Aged Out No longer eligi ble based on patient's age to complete this topic Pneumococcal vaccine (0-49 years) Aged Out No longer eligible based on patient's age to complete this topic RSV vaccine - (32-36 weeks) or 60+ years (No Doses Required) Completed Insurance [place] [id number]
[2024-10-04 22:46] VITALS: BP 152/90; PULSE 119; RESP 16; TEMP 36.7; O2SAT 98; BMI 31.9
--- NOTE | 2024-10-04 23:02 | CRLHL7_ITS ---
For Patients: As a result of the Century Cures Act, medical imaging exams and procedure reports are released immediately into your electronic medical record. You may view this report before your referring provider. If you have questions, please contact your health care provider. Indication: Constipation. Technique: Abdomen 2 view. Comparison: None. Findings/Impression: Air-distended colon. Mild colonic stool burden predominantly in the left hemicolon. No dilated small bowel loops. No evidence for free air. Right upper quadrant surgical clips. The lung bases are clear. Mild scoliotic curvature of the spine. No acute osseous findings. Dictated by Nikolai Graf MD @ 10/05/2024 12:00:35 AM (Electronically Signed)
--- NOTE | 2024-10-04 23:12 | ED_ITS ---
HPI - Abdominal Pain General Date Seen: 10/04/24 Chief Complaint: Abdominal Pain Stated Complaint: 09/30, severe constipation Time Seen by Provider: 10/04/24 22:47 Source: patient Mode of arrival: ambulatory Limitations: no limitations History of Present Illness HPI narrative: Patient is a 29-year-old female presenting to the emergency department for abdominal pain. She had a on 09/29/2024 for breech position. There is no complications with the . She was just discharged yesterday and stayed an extra couple days due to preeclampsia which she was started on n ifedipine for. She is concerned now because she woke up with abdominal pain and bloating. She has not had a bowel movement in 5 days she states. She feels like she has to go but is unable to have any bowel movements. Has tried several stool softeners today without any improvement. States the bloating feels like it is getting worse the pain is becoming worse. She stop taking her oxycodone yesterday. She denies any pain at her surgical site. Has not had any vaginal discharge or bleeding. Denies fevers, chills, weakness, numbness, chest pain, shortness of breath. Denies problems with constipation before. Related Data Home Medications ?Medication ?Instructions ?Recorded ?Confirmed QXL-ypfu-FE-omega 3-fat com #1 27 1 cap PO DAILY 05/01/24 09/29/24 mg-1 mg-300 mg capsule doxylamine succinate 25 mg tablet 25 mg PO QDAY PRN 06/28/24 09/29/24 (Unisom (doxylamine)) pyridoxine (vitamin B6) 50 mg 50 mg PO QDAY PRN 06/28/24 09/29/24 capsule (Vitamin B-6) Previous Rx's ?Medication ?Instructions ?Recorded acetaminophen 500 mg tablet 1,000 mg (2 x 500 mg) PO Q6H PRN 10/02/24 Pain #0 tabs docusate sodium 100 mg capsule 100 mg PO BID PRN #90 caps 10/02/24 ibuprofen 600 mg tablet 600 mg PO Q6H PRN Pain #60 tabs 10/02/24 oxycodone 5 mg tablet 5 - 10 mg (1 - 2 x 5 mg) PO Q4H 10/02/24 PRN Pain #10 tabs nifedipine 30 mg tablet,extended 30 mg PO DAILY #60 tabs 10/03/24 release 24 hr Allergies Allergy/AdvReac Type Severity Reaction Status Date / Time codeine Allergy Intermediate Confusion Verified 09/29/24 14:23 Review of Systems Status of ROS Reports: 10 or more systems reviewed and unremarkable except as noted in History and below [facility] Medical History Family history of Down syndrome ?Z82.79 - Family history of other congenital malformations, deformations and chromosomal abnormalities (ICD-10) History of abnormal cervical Pap smear ?Z87.42 - Personal history of other diseases of the female genital tract (ICD-10) Heart murmur ?R01.1 - Cardiac murmur, unspecified (ICD-10) Congenital heart disease ?Q24.9 - Congenital malformation of heart, unspecified (ICD-10) Family history of congenital heart disease ?Z82.79 - Family history of other congenital malformations, deformations and chromosomal abnormalities (ICD-10) Rh negative, maternal ?O26.899 - Other specified related conditions, unspecified trimester (ICD-10) ?Z67.91 - Unspecified blood type, rh negative (ICD-10) Pre-eclampsia ?O14.90 - Unspecified pre-eclampsia, unspecified trimester (ICD-10) Scoliosis ?M41.9 - Scoliosis, unspecified (ICD-10) Urinary tract infection ?N39.0 - Urinary tract infection, site not specified (ICD-10) Dysuria ?R30.0 - Dysuria (ICD-10) Yeast vaginitis ?B37.31 - Acute candidiasis of vulva and vagina (ICD-10) Surgical History Status post primary low transverse section (09/30/24) ?Z98.891 - History of uterine scar from previous surgery (ICD-10) History of cholecystectomy ?Z90.49 - Acquired absence of other specified parts of digestive tract (ICD- 10) Social History Narrative: 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 Marital status: . Denominational/cultural needs: no. Chemical or radiation exposure: no. Pre- tobacco use: non. Pre- alcohol use: no Current tobacco use: no. Current alcohol use: no. Recreational drug use: no. Dietary restrictions: no. Blood transfusion acceptable in an emergency: yes. PSYCHOSOCIAL HISTORY: History of depression or currently depressed: Denies. Current for past physical, emotional, or sexual mistreatment: Denies. Problems that will make it hard to make it to appointments: Denies. What is your current living situation?: I presently have a place to live Problems where you live: no known problems In the past 12 months, utilities in danger of being shut off: no In past 12 months, lack of transportation kept you from medical appts, meetings, work, or getting things needed for daily living: no In the past 12 mos, have been you worried that your food would run out before you had money to buy more?: never true In the past 12 mos, the food you bought just didn't last and you didn't have money to buy more?: never true Smoking Status: Never smoker How often does anyone, including family, friends and others, physically hurt you : never How often does anyone, including family, friends and others, insult or talk down to you: never How often does anyone, including family, friends and others, threaten you with harm: never How often does anyone, including family, friends and others, scream or curse at you: never Exam Narrative: Exam Narrative: Const: Well-nourished, Well-developed, in mild distress Eyes: PERRL, no conjunctival injection, and symmetrical lids HENT: Atraumatic external nose and ears. Moist mucous membranes. Neck: Symmetric, trachea midline, No thyromegaly. CVS: RRR, No murmurs or gallops. Peripheral pulses 2+ and equal in all extremities RESP: Unlabored respiratory effort. Clear to auscultation bilaterally. GI: Tenderness to palpation just below the umbilicus. No tenderness around the surgical site or to pelvic region. MSK:Extremities w/o deformity, Normal Active ROM Skin: Warm, Dry. No rashes or lesions. Well-healing surgical site Neuro: Normal Muscle tone, No focal neurological deficits. Psych: Awake, Alert, & Oriented x3. Appropriate mood and affect. Const: Vital Signs, click to edit/add: Vital Signs - 24 hr 10/04/24 22:46 Temperature 98.0 F Pulse Rate [Left P ulse Oximeter] 119 H Respiratory Rate 16 Blood Pressure [Ri ght Upper Arm] 152/90 H Pulse Oximetry 98 Oxygen Delivery Me thod Room Air Course Vital Signs Vital signs: Initial Vital Signs Temperature 98.0 F 10/04/24 22:46 Temperature Source Temporal Artery Scan 10/04/24 22:46 Pulse Rate 119 H 10/04/24 22:46 Pulse Rhythm Regular 10/04/24 22:46 Respiratory Rate 16 10/04/24 22:46 Blood Pressure 152/90 H 10/04/24 22:46 Blood Pressure Mean 110 H 10/04/24 22:46 Blood Pressure Position Sitting 10/04/24 22:46 Pulse Oximetry 98 10/04/24 22:46 Oxygen Delivery Method Room Air 10/04/24 22:46 Vital Signs Temperature 98.0 F 10/04/24 22:46 Pulse Rate 119 H 10/04/24 22:46 Respiratory Rate 16 10/04/24 22:46 Blood Pressure 152/90 H 10/04/24 22:46 Pulse Oximetry 98 10/04/24 22:46 Oxygen Delivery Method Room Air 10/04/24 22:46 Temperature 98.0 F 10/04/24 22:46 Pulse Rate 119 H 10/04/24 22:46 Respiratory Rate 16 10/04/24 22:46 Blood Pressure 152/90 H 10/04/24 22:46 Pulse Oximetry 98 10/04/24 22:46 Oxygen Delivery Method Room Air 10/04/24 22:46 MDM - Abdominal Pain MDM Narrative Medical decision making narrative: Patient is a 29-year-old female presenting to emergency department for concerns of constipation. Will do an x-ray to look for signs of constipation. Her pain is just below the umbilicus and above the surgical site. My concern for endometrial I this is relatively low at this time as she is having no tenderness to the surgical site or to the pelvic region and would expect tenderness here if she did have endometrial it is. She is also having no discharge or bleeding. Has not had any systemic symptoms. She is currently tachycardic and hypertensive but that made be due to her pain. Will order CBC, CMP, magnesium, liver panel, urinalysis. I did speak to the on-call OB Gyne about the patient's because she had elevated blood pressures. Also spoke to her about the patient's pain. Due to the location seems unlikely to be endometriosis based on my description to Dr. Apple. Lab work was still pending at that time and she recommends follow-up in the next couple days if everything else looks good. Patient's LFTs came back elevated. LFTs performed just a couple days ago were within normal limits. Due to these elevated LFTs Dr. Soler does recommend admission to labor and delivery floor. Abdominal x-ray reviewed by myself and the radiologist shows an air distended colon liver mild colonic stool burden but no signs of impaction. I believe she has an ileus from a recent surgery and oxycodone use. I do not believe further imaging is necessary. Patient will be admitted. Lab Data Labs: Lab Results 10/04/24 Range/Units 23:20 WBC 10.49 (4.50-11.00) K/uL RBC 4.30 (4.00-5.20) m/uL Hgb 12.7 (12.0-16.0) gm/dL Hct 37.7 (33.0-51.0) % MCV 88 (80-100) fL MCH 30 (26-34) pg MCHC 34 (32-36) gm/dL RDW Coeff of Faviola 13.2 (11.5-15.5) % Plt Count 326 (140-440) K/uL Neut % (Auto) 73.0 H (42.0-72.0) % Lymph % (Auto) 18.7 L (20-44) % [place] % (Auto) 4.9 (0.0-11.0) % Eos % (Auto) 2.2 (0.0-7.0) % Baso % (Auto) 0.2 (0.0-3.0) % Neut # (Auto) 7.70 H (1.7-7.0) K/uL Lymph # (Auto) 2.00 (0.90-2.90) K/uL [place] # (Auto) 0.50 (0.00-0.90) K/UL Eos # (Auto) 0.23 (0.00-0.50) K/uL Baso # (Auto) 0.02 (0.00-0.30) K/uL Abs Immat Gran (auto) 0.10 (0.00-0.30) K/uL Imm/Tot Granulo (auto) 1.0 % Sodium 137 (135-149) mmol/L Potassium 3.5 L (3.6-5.1) mmol/L Chloride 104 (96-114) mmol/L Carbon Dioxide 25 (20-32) mmol/L Anion Gap 8 (7-15) mEq/L BUN 11 (5-24) mg/dL Creatinine 0.4 L (0.5-1.5) mg/dL Estimated Creat Clear 175.97 Estimated GFR 136 ml/min Glucose 93 (60-115) mg/dL Calcium 10.4 (8.4-10.6) mg/dL Magnesium 2.3 (1.5-2.6) mg/dL Total Bilirubin 0.6 (0.1-1.5) mg/dL Direct Bilirubin 0.2 (0.0-0.5) mg/dL AST 102 H (12-35) U/L ALT 175 H (4-35) U/L Alkaline Phosphatase 273 H (40-150) U/L Total Protein 7.1 (6.0-8.3) g/dL Albumin 4.0 (3.3-5.0) g/dL Imaging Data Abdominal x-ray: Attestation: I have reviewed the pertinent imaging results. Radiologist's impression: Air-distended colon. Mild colonic stool burden predominantly in the left hemicolon. No dilated small bowel loops. No evidence for free air. Right upper quadrant surgical clips. The lung bases are clear. Mild scoliotic curvature of the spine. No acute osseous findings. Dictated by Nikolai Graf MD @ 10/05/2024 12:00:35 AM Discharge Plan Discharge Clinical Impression: Ileus, postoperative Pre-eclampsia Qualifiers: Trimester: unspecified trimester Qualified Code(s): O14.90 - Unspecified pre- eclampsia, unspecified trimester Patient Disposition: Admit to OB Condition: Stable
[2024-10-04 23:25] LABS: Basophils Absolute Auto 0.02 K/uL (0.00-0.30); Basophils Percent Auto 0.2 % (0.0-3.0); Eosinophils Absolute Auto 0.23 K/uL (0.00-0.50); Eosinophils Percent Auto 2.2 % (0.0-7.0); Hematocrit 37.7 % (33.0-51.0); Hemoglobin* 12.7 gm/dL (12.0-16.0); Lymphocytes Percent Auto 18.7 % (20-44); Mean Corpuscular HGB Conc 34 gm/dL (32-36); Mean Corpuscular Hemoglobin 30 pg (26-34); Mean Corpuscular Volume 88 fL (80-100); Monocytes Percent Auto 4.9 % (0.0-11.0); Platelet Count* 326 K/uL (140-440); RDW Coefficient of Variation % 13.2 % (11.5-15.5); White Blood Count* 10.49 K/uL (4.50-11.00)
--- OUTSIDE RECORDS SUMMARY | 2024-10-04 23:31 | XMS_ITS | Clinical Summary ---
Author Organization [facility] Address [address] [place] [address] Care Team Providers Care Oxygen Equipment Aide Name Role Phone Unavailable Primary Care Provider Unavailabl e Source Comments Patient records contain information from all sites at [facility]. For routine questions regarding patient records, call [phone] during business hours, M-F 8:00 AM - 5:00 PM Central Time. Record requests for emergency care only can be directed to [phone] at any time.[facility] Allergies Active Allergy Reactions Criticality Noted Date Comments Codeine Other (see comments),Palpitations Medium 06/25/2022 high heart rate and passed out Medications omega-3 fatty acids 1,000 mg capsule Take 1,000 mg by mouth daily. Active gjpollu-Hy-zgdq -FA 27 mg iron- 1 mg tablet [...] drink = 0.6 oz pur e alcohol) [facility] Utilities Answer Date Recorded In the [...] your living situation today? I have a 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
[2024-10-04 23:39] LABS: Chloride* 104 mmol/L (96-114); Potassium* 3.5 mmol/L (3.6-5.1); Sodium* 137 mmol/L (135-149)
[2024-10-04 23:42] LABS: Anion Gap 8 mEq/L (7-15); Blood Urea Nitrogen* 11 mg/dL (5-24); Carbon Dioxide* 25 mmol/L (20-32); Creatinine* 0.4 mg/dL (0.5-1.5); Est. Creatinine Clearance* 175.97; Estimated Glomerular Filt Rate 136 ml/min
[2024-10-04 23:43] LABS: Alanine Aminotransferase* 175 U/L (4-35); Alkaline Phosphatase* 273 U/L (40-150); Aspartate Amino Transferase* 102 U/L (12-35); Bilirubin Direct* 0.2 mg/dL (0.0-0.5); Bilirubin Total* 0.6 mg/dL (0.1-1.5); Calcium* 10.4 mg/dL (8.4-10.6); Glucose* 93 mg/dL (60-115); Magnesium* 2.3 mg/dL (1.5-2.6); Total Protein* 7.1 g/dL (6.0-8.3)
[2024-10-04 23:44] LABS: Slide Review Reflex No
[2024-10-05] VITALS (12 sets, daily range): BP systolic 117–154; BP diastolic 54–80; PULSE 74–105; RESP 12–16; TEMP 36.6–36.9; O2SAT 96–98
--- NOTE | 2024-10-05 00:34 | P.LDBA_ITS ---
Subjective History of Present Illness Time Seen by Provider: 00:34 Date Seen: 10/05/24 Narrative: Clementine is a 29-year-old seen on postop day 4 in the emergency department. She is status post uncomplicated primary on 09/30/24 performed in the setting of breech malpresentation. was complicated by preeclampsia without severe features, history of possible maternal congenital heart disease, scoliosis. Operative note reviewed, case was uncomplicated. She notes she was discharged to home on 10/03, at which time she was feeling very well. She was passing gas prior to dismissal but had not have a bowel movement. Beginning 10/04, she noted no output of stool or flatus with increasing abdominal pain and distension. She attempted to treat this with MiraLax, milk of magnesium and a glycerin suppository without success. Ultimately, she presented to the emergency room as she found primarily her rectal discomfort to be intolerable. There, she was found to be mildly hypertensive and tachycardic but hemodynamically stable. She denied pelvic pain, fever/chills, nausea/vomiting. Abdominal x-ray demonstrated dilation of the colon, with a decompressed small bowel. I spoke to reading radiologist, he confirmed that he is not suspicious for large bowel obstruction. He suspects if anything her stool burden could be leading to the gaseous distension. Patient denied headaches, vision changes or right upper quadrant pain. Repeat HELLP labs showed stable hemoglobin at 12.7, no leukocytosis, platelets of 326, creatinine of 0.4 and new severe transaminitis with an AST of 102 an ALT of 175. As such, recommendation was made to admit to OB for preeclampsia with severe features for antihypertensive medication titration and magnesium sulfate. In addition to this, will attempt gentle bowel rest and inpatient management of her constipation. Abdominal x-ray: Air-distended colon. Mild colonic stool burden predominantly in the left hemicolon. No dilated small bowel loops. No evidence for free air. Right upper quadrant surgical clips. The lung bases are clear. Mild scoliotic curvature of the spine. No acute osseous findings. Specific Issues/Plans Partner: Reed. Baby: Boy! [place] H&P: by CGM on 09/27/24 # Elevated BP without HTN - 09/27 one elevated BP in clinic, all normal in triage # Proteinuria [ ] RN BP check on 2/28 - Would meet HTN diagnosis with any future elevated values #GBS+ in urine - intrapartum ampicillin # malpresentation at 34 weeks Growth US and presentation US at 36 weeks-VERTEX! EFW: 95%, AC:>97% # Last pap: 03/03/2024 LGSIL, cannot R/O HGSIL, +HPV other high risk types. * colpo at [facility] on 04/07/2024: no record of path result. * pap with colpo at 6 weeks #Low Lying Placenta - 1.1cm from os on 05/25, RESOLVED 07/24/24 9.8cm from the os. 07/24/2024: See results below Recommended pelvic rest #Bilateral choroid plexus cysts low risk NIPT otherwise normal level 2 US, suspected normal variant #?Maternal history of congenital heart disease -?PFO or VSD that resolved spontaneously Attempted to get outside records from [facility] No echo recommended per [facility] # Maternal scoliosis Patient requested Anesthesia consult: order placed 06/28/2024 #Rh negative rhogam at 28 weeks on 07/24/2024 #Anti-Consuelo a antibodies at 28 weeks. Clinically insignificant. Imaging: - Level 2 US: EFW 323g, normal detailed anatomy aside from bilateral choroid plexus cysts. Suspected normal variant given low risk NIPT. No further testing recommended. - 07/24/24: Breech, SDP 4.9cm. Bilateral choroid plexus cysts have resolved. Posterior placenta 9.8cm from the os. EFW 1247 g, 2 lb 12 oz, 54%. BPD 87%, 41%, AC 56%, FL 36%. - 09/20/24: Vertex presentation, single deepest pocket of amniotic fluid 7.9 cm, BPD: 65 percentile, HC: 94 percentile, AC: More than the 97th percentile, femur length: 23 percentile, EFW: 3499 g, 95th percentile. Vaccinations: Covid: Received in [place]; 07/10/2024 Flu: 06/28/2024 Tdap: Declined RSV: Declined Hep B: 06/28/2024 32 week mental health: PHQ-9 3, HOLLY-7 1. 34 week Hgb: [] OB - Problem Based A/P Additional Plan (1) Constipation: Status: Acute (2) care and examination of lactating mother: Status: Acute (3) Pre-eclampsia: Status: Acute Plan Clementine is a 29-year-old seen on postop day 4 from primary . She presented to the emergency department with constipation, abdominal pain and inability to pass gas/stools. There, abdominal x-ray demonstrated colonic distension without evidence of obstruction no acute pathologies. Mild stool burden noted. During her evaluation, she was noted to be hypertensive despite nifedipine 30 mg XL daily. Repeat HELLP labs demonstrated new and significant transaminitis. - Plan to admit to Labor and delivery in the setting of preeclampsia severe features - Start magnesium sulfate for seizure prophylaxis, plan to continue this for 24 hours - Diligent blood pressure monitoring ongoing. Plan to increase nifedipine to 30 mg XL b.i.d. tonight. - Trend pre E labs q.6h - Initial description of ileus was not consistent with my review of images, I subsequently did speak to the reading radiologist to affirms there is not an ileus present. He affirmed that there is not evidence of large bowel obstruction, where he thinks the likely underlying pathology is constipation and stool burden leading to her colonic distension. As such, we will not proceed with complete bowel rest. Rather, I would recommend that she has gentle p.o. intake to a limit of 1.5 L p.o. and avoiding any potential constipating medicat ions (such as Zofran). Plan to start Senokot b.i.d. tomorrow morning. Patient previously has taken MiraLax, milk of magnesium and glycerin suppository tonight. Plan to monitor for return of bowel function. If clinical improvement is not noted, consider CT abdomen and pelvis within 24 hours. - Routine and support/cares OB Exam Physical Exam Vital signs: Temp Pulse Resp BP Pulse Ox O2 Del Method 98.0 F 119 H 16 152/90 H 98 Room Air 10/04/24 22:46 10/04/24 22:46 10/04/24 22:46 10/04/24 22:46 10/04/24 22:46 10/04/24 22:46 Narrative: General: Alert and oriented, no acute distress Psych: Appropriate mood at Abdomen: Distended, but overall soft and with gaseous tympany. Tender to palpation in the lower quadrants, right greater than left, consistent with postoperative state. No rebound or guarding. Fundus palpated 2 below umbilicus, mildly tender.
[2024-10-05] MEDS: MAGNESIUM IV 4 GM/100 ML PIGGYBACK IVPB (01:56)
[2024-10-05] MEDS: KETOROLAC 30 MG/ML inj IVP ×3 (01:56→14:22)
[2024-10-05] MEDS: LACTATED RINGERS 1000 ML 1,000 ML 75 ML IV ×2 (01:56→15:36)
[2024-10-05] MEDS: MAGNESIUM Infusion 40 GM/1,000 ML IV.SOLN IVPB ×2 (01:57→20:12)
[2024-10-05] MEDS: NIFEdipine 30 MG TAB.ER.24 PO ×2 (05:11→21:02)
[2024-10-05] MEDS: ACETAMINOPHEN 500 MG TABLET 1000 MG PO ×2 (06:09→12:39)
[2024-10-05] MEDS: SENNOSIDES/DOCUSATE TABLET 2 TAB PO ×2 (06:09→21:01)
[2024-10-05] MEDS: MAGNESIUM HYDROXIDE 30 ML ORAL.SUSP PO ×3 (06:09→19:49)
[2024-10-05 06:42] LABS: Hemoglobin* 12.2 gm/dL (12.0-16.0); Mean Corpuscular HGB Conc 34 gm/dL (32-36); Mean Corpuscular Hemoglobin 30 pg (26-34); Mean Corpuscular Volume 88 fL (80-100); Platelet Count* 323 K/uL (140-440); White Blood Count* 9.41 K/uL (4.50-11.00)
[2024-10-05 06:50] LABS: Slide Review Reflex No
[2024-10-05 06:59] LABS: Blood Urea Nitrogen* 10 mg/dL (5-24); Creatinine* 0.4 mg/dL (0.5-1.5); Est. Creatinine Clearance* 175.97; Estimated Glomerular Filt Rate 136 ml/min
[2024-10-05 07:04] LABS: Magnesium* 5.1 mg/dL (1.5-2.6)
[2024-10-05 07:16] LABS: Alanine Aminotransferase* 143 U/L (4-35); Aspartate Amino Transferase* 86 U/L (12-35)
[2024-10-05] MEDS: SODIUM CHLORIDE 0.9 % (FLUSH) 10 ML SYRINGE IVF (08:12)
--- NOTE | 2024-10-05 10:37 | PM.OBPNVD1 ---
OB - PN:Subj Subjective Date Seen: 10/05/24 Interval history: Clementine is a 29-year-old woman on postoperative day 5 after primary for breech presentation readmitted early this morning with diagnosis of preeclampsia with severe features based on transaminitis and severe constipation. Nifedipine ER 30 mg was increased from once to twice daily dosing at admission. OB - PN: Obj Exam Physical Exam: Vital signs: Temp Pulse Resp BP Pulse Ox O2 Del Method 98.3 F 75 14 132/73 96 Room Air 10/05/24 08:15 10/05/24 08:15 10/05/24 08:15 10/05/24 08:15 10/05/24 08:15 10/05/24 08:15 Narrative: Physical exam: General: No acute distress Psych: Alert and oriented x3, full affect Heart: Regular rate and rhythm, no murmur rub or gallop Lungs: Clear to auscultation bilaterally Abdomen: not examined while patient . Lower extremities: No edema or erythema OB - PN: Obj Data Labs Labs: Laboratory Results - last 24 hr 10/04/24 10/05/24 23:20 06:27 WBC 10.49 9.41 RBC 4.30 4.10 Hgb 12.7 12.2 Hct 37.7 36.0 MCV 88 88 MCH 30 30 MCHC 34 34 RDW Coeff of Faviola 13.2 Plt Count 326 323 Neut % (Auto) 73.0 H Lymph % (Auto) 18.7 L Davis % (Auto) 4.9 Eos % (Auto) 2.2 Baso % (Auto) 0.2 Neut # (Auto) 7.70 H Lymph # (Auto) 2.00 Davis # (Auto) 0.50 Eos # (Auto) 0.23 Baso # (Auto) 0.02 Abs Immat Gran (auto) 0.10 Imm/Tot Granulo (auto) 1.0 Sodium 137 Potassium 3.5 L Chloride 104 Carbon Dioxide 25 Anion Gap 8 BUN 11 10 Creatinine 0.4 L 0.4 L Estimated Creat Clear 175.97 175.97 Estimated GFR 136 136 Glucose 93 Calcium 10.4 Magnesium 2.3 5.1 H* Total Bilirubin 0.6 Direct Bilirubin 0.2 AST 102 H 86 H ALT 175 H 143 H Alkaline Phosphatase 273 H Total Protein 7.1 Albumin 4.0 OB - PN: A/P Delivery Assessment and Plan (1) Constipation: Status: Acute Assessment and Plan: Fleet's enema given with result of small BM. Patient still feels that she needs to defecate but feels less uncomfortable. Will begin bisacodyl suppositories. Continue with senna - docusate orally. (2) care and examination of lactating mother: Status: Acute (3) Pre-eclampsia: Problem details: With severe features based on transaminitis Status: Acute Assessment and Plan: Continue magnesium X 24 hours. Strict I&O. HELLP labs Q4 hours.
[2024-10-05] MEDS: SIMETHICONE 80 MG TAB.CHEW PO (11:25)
[2024-10-05 12:13] LABS: Hematocrit 39.3 % (33.0-51.0); Hemoglobin* 13.3 gm/dL (12.0-16.0); Mean Corpuscular HGB Conc 34 gm/dL (32-36); Mean Corpuscular Hemoglobin 30 pg (26-34); Mean Corpuscular Volume 88 fL (80-100); Platelet Count* 369 K/uL (140-440); Red Blood Count 4.46 m/uL (4.00-5.20)
[2024-10-05 12:16] LABS: Slide Review Reflex No
[2024-10-05 12:25] LABS: Blood Urea Nitrogen* 9 mg/dL (5-24); Creatinine* 0.4 mg/dL (0.5-1.5); Est. Creatinine Clearance* 175.97; Estimated Glomerular Filt Rate 136 ml/min
[2024-10-05 12:27] LABS: Magnesium* 5.8 mg/dL (1.5-2.6)
[2024-10-05 15:03] LABS: Alanine Aminotransferase* 143 U/L (4-35); Aspartate Amino Transferase* 81 U/L (12-35)
[2024-10-05] MEDS: METOCLOPRAMIDE HCL 5 MG/ML INJ 10 MG IVP (16:20)
[2024-10-05 18:24] LABS: Hematocrit 35.9 % (33.0-51.0); Mean Corpuscular HGB Conc 33 gm/dL (32-36); Mean Corpuscular Hemoglobin 30 pg (26-34); Mean Corpuscular Volume 89 fL (80-100); Platelet Count* 347 K/uL (140-440); Red Blood Count 4.05 m/uL (4.00-5.20); White Blood Count* 9.02 K/uL (4.50-11.00)
[2024-10-05 18:27] LABS: Slide Review Reflex No
[2024-10-05 18:33] LABS: Alanine Aminotransferase* 125 U/L (4-35); Aspartate Amino Transferase* 62 U/L (12-35); Blood Urea Nitrogen* 10 mg/dL (5-24); Creatinine* 0.4 mg/dL (0.5-1.5); Est. Creatinine Clearance* 175.97; Estimated Glomerular Filt Rate 136 ml/min
[2024-10-05 18:34] LABS: Alanine Aminotransferase* 124 U/L (4-35); Aspartate Amino Transferase* 60 U/L (12-35)
[2024-10-05 18:46] LABS: Magnesium* 6.1 mg/dL (1.5-2.6)
[2024-10-06] VITALS (7 sets, daily range): BP systolic 115–143; BP diastolic 67–88; PULSE 80–95; RESP 12–18; TEMP 36.8–37.1; O2SAT 95–98
[2024-10-06 00:29] LABS: Hematocrit 35.7 % (33.0-51.0); Hemoglobin* 12.1 gm/dL (12.0-16.0); Mean Corpuscular HGB Conc 34 gm/dL (32-36); Mean Corpuscular Hemoglobin 30 pg (26-34); Mean Corpuscular Volume 88 fL (80-100); Platelet Count* 349 K/uL (140-440); Red Blood Count 4.04 m/uL (4.00-5.20); White Blood Count* 9.04 K/uL (4.50-11.00)
[2024-10-06 00:30] LABS: Slide Review Reflex No
[2024-10-06 00:46] LABS: Alanine Aminotransferase* 109 U/L (4-35); Aspartate Amino Transferase* 55 U/L (12-35); Blood Urea Nitrogen* 10 mg/dL (5-24); Creatinine* 0.4 mg/dL (0.5-1.5); Est. Creatinine Clearance* 175.97; Estimated Glomerular Filt Rate 136 ml/min
[2024-10-06 00:49] LABS: Magnesium* 6.2 mg/dL (1.5-2.6)
[2024-10-06] MEDS: KETOROLAC 30 MG/ML inj IVP (02:09)
[2024-10-06] MEDS: METOCLOPRAMIDE HCL 5 MG/ML INJ 10 MG IVP (04:51)
[2024-10-06] MEDS: ACETAMINOPHEN 500 MG TABLET 1000 MG PO (08:30)
[2024-10-06] MEDS: SENNOSIDES/DOCUSATE TABLET 2 TAB PO ×2 (08:30→23:54)
[2024-10-06] MEDS: NIFEdipine 30 MG TAB.ER.24 PO ×2 (08:30→20:46)
--- NOTE | 2024-10-06 09:38 | PM.OBPNVD1 ---
OB - PN:Subj Subjective Time Seen by Provider: 09:00 Date Seen: 10/06/24 Interval history: Clementine is a 29-year-old woman on postoperative day 6 after primary for breech presentation readmitted early yesterday morning with diagnosis of preeclampsia with severe features based on transaminitis and severe constipation. She came off magnesium sulfate around 2:00 am this morning. Her constipation was managed aggressive;ly yesterday, and she is happy to report normal bowel function and less abdominal distention today. She feels well and is ambulating, voiding, and tolerating po. Nifedipine ER 30 mg was increased from once to twice daily dosing at admission. She would like to be able to attend her 's well child check today, if possible. [place] status: OB - PN: Obj Exam Physical Exam: Vital signs: Temp Pulse Resp BP Pulse Ox O2 Del Method 98.3 F 83 14 118/71 96 Room Air 10/06/24 08:30 10/06/24 08:30 10/06/24 08:30 10/06/24 08:30 10/06/24 08:30 10/06/24 08:30 Constitutional: Constitutional: no acute distress Routine Neck Exam: Neck: Present normal inspection Routine Respiratory Exam: Respiratory: Present CTA bilaterally; Absent respiratory distress Routine Cardiovascular Exam: Cardiovascular: Present RRR; Absent murmur Routine Abdominal Exam: Abdominal: Present soft; Absent tenderness Fundus: Present firm Comments: Nondistended. Incision clean, dry, intact Routine Extremities Exam: Extremities: Present normal inspection and pedal edema; Absent calf tenderness Routine Neurological Exam: Neurological: Present alert and oriented X3 Routine Psychiatric Exam: Psychiatric: Present normal affect Wound Management: Method: suture Examination: Present clean, dry and intact; Absent erythematous Comments: Pfannenstiel incision OB - PN: Obj Data Labs Labs: Laboratory Results - last 24 hr 10/05/24 10/05/24 10/05/24 12:03 18:05 18:05 WBC 9.00 9.02 RBC 4.46 4.05 Hgb 13.3 12.0 Hct 39.3 35.9 MCV 88 89 MCH 30 30 MCHC 34 33 Plt Count 369 347 BUN 9 10 Creatinine 0.4 L 0.4 L Estimated Creat Clear 175.97 175.97 Estimated GFR 136 136 Magnesium 5.8 H* 6.1 H* AST 81 H 60 H 62 H ALT 143 H 124 H 10/05/24 10/06/24 18:05 00:25 WBC 9.04 RBC 4.04 Hgb 12.1 Hct 35.7 MCV 88 MCH 30 MCHC 34 Plt Count 349 BUN 10 Creatinine 0.4 L Estimated Creat Clear 175.97 Estimated GFR 136 Magnesium 6.2 H* AST 55 H ALT 125 H 109 H OB - PN: A/P Delivery Assessment and Plan (1) Constipation: Status: Acute (2) care and examination of lactating mother: Status: Acute (3) Pre-eclampsia: Problem details: With severe features based on transaminitis Status: Acute Plan Continue nifedipine 30 mg XL po BID. Continue close monitoring of BP. Repeat labs in the morning tomorrow. Anticipate discharge tomorrow. Plan day: 6
[2024-10-06] MEDS: IBUPROFEN 600 MG TABLET PO ×2 (12:49→23:54)
[2024-10-07 03:30] VITALS: BP 138/80; PULSE 72; RESP 18; O2SAT 98
[2024-10-07 06:46] LABS: Basophils Absolute Auto 0.04 K/uL (0.00-0.30); Basophils Percent Auto 0.5 % (0.0-3.0); Eosinophils Absolute Auto 0.42 K/uL (0.00-0.50); Eosinophils Percent Auto 5.1 % (0.0-7.0); Hematocrit 36.1 % (33.0-51.0); Hemoglobin* 12.1 gm/dL (12.0-16.0); Immature Granulocytes Abs Auto 0.01 K/uL (0.00-0.30); Immature Granulocytes Pct Auto 0.1 %; Lymphocytes Absolute Auto 3.02 K/uL (0.90-2.90); Lymphocytes Percent Auto 36.6 % (20-44); Mean Corpuscular HGB Conc 34 gm/dL (32-36); Mean Corpuscular Hemoglobin 30 pg (26-34); Mean Corpuscular Volume 89 fL (80-100); Monocytes Percent Auto 5.4 % (0.0-11.0); Neutrophils Absolute Auto 4.32 K/uL (1.7-7.0); Neutrophils Percent Auto 52.3 % (42.0-72.0); Platelet Count* 339 K/uL (140-440); RDW Coefficient of Variation % 13.1 % (11.5-15.5); Red Blood Count 4.04 m/uL (4.00-5.20); White Blood Count* 8.26 K/uL (4.50-11.00)
[2024-10-07 06:48] LABS: Slide Review Reflex No
[2024-10-07 07:04] LABS: Blood Urea Nitrogen* 12 mg/dL (5-24); Creatinine* 0.4 mg/dL (0.5-1.5); Est. Creatinine Clearance* 175.97; Estimated Glomerular Filt Rate 136 ml/min
[2024-10-07 07:05] LABS: Alanine Aminotransferase* 73 U/L (4-35); Aspartate Amino Transferase* 31 U/L (12-35)
--- NOTE | 2024-10-07 08:10 | PM.OBDSVD1 ---
DS: Providers Provider Date Seen: 10/07/24 Date of admission: 10/05/24 01:24 Primary care physician: Kandice Acuña MD Admitting Clinician: Olivia Apple MD Attending Physician on discharge: Olivia Apple MD Exam Narrative: Exam Narrative: General: Alert and oriented, no acute distress Psych: Appropriate mood and affect Heart: Regular rate and rhythm, no rubs murmurs or gallops Lungs: Clear to posterior auscultation Abdomen: Soft, nontender nondistended. Fundus at midway between pubic bone and umbilicus. Incision is well healing. Const: Vital Signs, click to edit/add: Vital Signs - 24 hr 10/06/24 08:30 10/06/24 12:30 10/06/24 16:30 Temperature 98.3 F 98.3 F Pulse Rate [Pulse Oximeter] 83 80 88 Respiratory Rate 14 16 14 Blood Pressure [Ri ght Arm] 118/71 124/76 133/88 Pulse Oximetry 96 95 95 Oxygen Delivery Me thod Room Air Room Air Room Air 10/06/24 19:54 10/06/24 23:30 10/07/24 03:30 Temperature Pulse Rate [Pulse Oximeter] 83 85 72 Respiratory Rate 18 18 18 Blood Pressure [Ri ght Arm] 143/77 H 115/67 138/80 Pulse Oximetry 98 98 98 Oxygen Delivery Me thod Room Air Room Air Room Air OB - DS: Summary Hospital Course Hospital Course: The patient is a 29 year old G 1 P 1 who was readmitted on 10/05/24 (POD4) for preeclampsia with severe features. She had an uncomplicated primary on 09 30 performed in the setting of breech malpresentation and preeclampsia without severe features. Her severe feature was severe range transaminitis. Since admission, she received 24 hours of magnesium sulfate therapy for seizure prophylaxis. Her antihypertensive regimen was titrated to now nifedipine XL 30 mg b.i.d.. Serial HELLP labs were obtained, demonstrating interval improvement of her transaminitis. Patient also had severe constipation on admission, notes this is significantly improved. She feels very well today. No headache, vision changes right upper quadrant pain. Overnight, her blood pressures have been in the normal to a single mild range. She notes her pain is well controlled. She is passing flatus and bowel movement. Appetite at baseline, no nausea or vomiting. Lochia is small volume. Ambulates without difficulty. Time Spent with Patient Time attestation: Total time spent providing and/or coordinating discharge services: Discharge Plan Discharge Disposition: Home, Self-Care Date of Admission: 10/05/24 01:24 Primary Care Provider: Kandice Acuña Condition: Stable Anticipated Discharge Date/Time: 10/07/24 08:14 Discharge Medications: New nifedipine 30 mg Tablet Extended Release 24hr 30 mg PO BID Qty: 60 1RF Continued [id number] 3-fat com #1 27-1-300 mg capsule 1 cap PO DAILY Unisom (doxylamine) 25 mg tablet 25 mg PO QDAY PRN Vitamin B-6 50 mg capsule 50 mg PO QDAY PRN acetaminophen 500 mg Tablet 1,000 mg PO Q6H PRN (Reason: Pain) Qty: 0 0RF docusate sodium 100 mg Capsule 100 mg PO BID PRNQty: 90 0RF ibuprofen 600 mg Tablet 600 mg PO Q6H PRN (Reason: Pain) Qty: 60 0RF oxycodone 5 mg Tablet 5 - 10 mg PO Q4H PRN (Reason: Pain) Qty: 10 0RF Discontinued nifedipine 30 mg Tablet Extended Release 24hr 30 mg PO DAILY Qty: 60 0RF Discharge Orders: Discharge Order (Routine); Ordered 10/07/24 Ordered By: Olivia Apple Additional Instructions: Discharge instructions were reviewed with the patient including signs and symptoms of infection and home going medications Lifting Restrictions: 20 pounds for 6 weeks No not submerge incision under water X 2 weeks? Nothing vaginally for 6 weeks: no tampons or intercourse Do not drive while taking narcotic pain medication(s) Off Work or School for 8 weeks Symptoms to report to doctor: Bleeding that saturates more than one pad per hour Passing clots larger than the size of a golf ball Pain not relieved by prescribed medication Fever above 100.4 degrees Fahrenheit A foul vaginal odor Difficulty in emotions, mood, and functions Thoughts of hurting yourself and/or Painful, reddened area in your breast Any drainage, redness, or tenderness in your IV/epidural site Severe headache that doesn't improve after taking medications Changes in vision, including temporary loss of vision, blurred vision, and/or light sensitivity Upper abdominal pain (usually under ribs on the right side) Decrease in urination or painful, frequent urinating Chest pain Shortness of breath Tenderness or pain with redness and/swelling in the calf(s) of your leg CONSTIPATION REMEDIES: Patients are often constipated after surgery or with use of oral narcotic medicine. You should continue to take the stool softener, Senokot-S during the next six weeks, and consume adequate amounts of water. If you have not had a bowel movement for 3 days after dismissal, or are uncomfortable and unable to pass stool, please try one or all of the following measures: 1. Milk of Magnesia ? 30 cc by mouth every 12 hours 2. Dulcolax suppository ? One suppository per rectum every 4-6 hours 3. Metamucil, Fibercon or other bulk former ? use as directed 4. Fleets Enema 5. Prunes or Prune juice If you continue to have constipation after trying the above remedies, you should contact your surgical team using the contact information listed above. Follow [facility] the [facility] for a BP check?10/11/24 (tentatively, will revise to MD visit - expect a call from schedulers on Wednesday) Call with BP greater than or equal to 160/110 2-week visit: incision check, discuss feeding concerns, review control options and screen for anxiety/depression. 6-week visit for an annual exam. consultation services are available to all mothers and babies for the first year after delivery.? To make an appointment, please call [phone]. Follow Up Appointments: Kandice Acuña MD [Primary Care Provider] - Forms: [facility] Info Instructions
[2024-10-07 08:19] VITALS: BP 131/84; PULSE 82; RESP 16; TEMP 37.1; O2SAT 98
[2024-10-07] MEDS: NIFEdipine 30 MG TAB.ER.24 PO (08:25)
[2024-10-07 08:26] VITALS: TEMP 37.1
[2024-10-07] MEDS: SENNOSIDES/DOCUSATE TABLET 2 TAB PO (08:26)
[2024-10-07] MEDS: IBUPROFEN 600 MG TABLET PO (08:26)
== END 2024-10-07 10:30 | disposition home or self-care (01) | DRG 776 ==
LOC: ED 10-05 00:04 → OB 10-05 09:53
PROVIDERS: Obstetrics & Gynecology; Admitting Provider Obstetrics & Gynecology; Emergency Provider Student in an Organized Health Care Education/Training Program; PCP Obstetrics & Gynecology; Visit Provider Obstetrics & Gynecology
DX: O14.15 Severe pre-eclampsia, complicating the puerperium (principal); K59.00 Constipation, unspecified
CPT/HCPCS: 36415; 74018; 80048; 80076; 81001; 82565; 83735; 84450; 84460; 84520; 85025; 85027; 99284; 99285; A9270; J1885; J2765; J3475; J7120

== ENCOUNTER 2024-10-10 09:50 | Outpatient (CLI) | payer OTHER, SELFPAY | END 2024-10-10 09:51 | disposition home or self-care (01) | PROVIDERS: Visit Provider Obstetrics & Gynecology | DX: Z39.2 Encounter for routine postpartum follow-up (principal) | CPT/HCPCS: 84450; 84460 ==

== ENCOUNTER 2024-10-16 12:01 | Outpatient (CLI) | payer OTHER, SELFPAY ==
--- NOTE | 2024-10-16 16:05 | P.LACCB_ITS ---
Consult Note - Mom Date of Visit Date of visit: 10/16/24 Reason for consultation: Breast/Nipple Issue (nipple pain x4 days) Visit Code: Visit Patient's Information Phone number: [phone] : 1 Para: 1 Allergies codeine Allergy (Intermediate, Verified 10/10/24 09:29) Confusion Mother's Medical History: Medical History (Updated 10/11/24 @ 00:03 by Background Daemon) Constipation ?K59.00 - Constipation, unspecified (ICD-10) malpresentation ?O32.9XX0 - Maternal care for malpresentation of fetus, unspecified, not applicable or unspecified (ICD-10) Family history of Down syndrome ?Z82.79 - Family history of other congenital malformations, deformations and chromosomal abnormalities (ICD-10) History of abnormal cervical Pap smear ?Z87.42 - Personal history of other diseases of the female genital tract (ICD-10) Heart murmur ?R01.1 - Cardiac murmur, unspecified (ICD-10) Congenital heart disease ?Q24.9 - Congenital malformation of heart, unspecified (ICD-10) Family history of congenital heart disease ?Z82.79 - Family history of other congenital malformations, deformations and chromosomal abnormalities (ICD-10) Rh negative, maternal ?O26.899 - Other specified related conditions, unspecified trimester (ICD-10) ?Z67.91 - Unspecified blood type, rh negative (ICD-10) Pre-eclampsia ?O14.90 - Unspecified pre-eclampsia, unspecified trimester (ICD-10) Scoliosis ?M41.9 - Scoliosis, unspecified (ICD-10) Urinary tract infection ?N39.0 - Urinary tract infection, site not specified (ICD-10) Dysuria ?R30.0 - Dysuria (ICD-10) Yeast vaginitis ?B37.31 - Acute candidiasis of vulva and vagina (ICD-10) Delivery Information Delivery type: Primary C/S; Labored Gestational Age: 37+6 Gestational Weight For Age: AGA Weight: 3.42 kg Discharge Weight: 3.264 kg Percentage weight loss: 4.6 Baby's Information Baby's Age at Visit: 16 days Baby's Provider or Clinic: [facility] Jaundice: No Past Experience Past Experience: No Current Frequency of Day Feedings: every 2-3 hours Frequency of Night Feedings: every 2-3 hours Both Breasts: Yes Suck: strong Latch: deep, was comfortable, now hurting Length of Time: 10-15 min on 1st, then 7-12 on 2nd Pumping Pumping: Yes (a few times) Quantity Pumped: 1-2 oz Supplementing EBM Supplement: No Formula Supplement: No Baby Elimination Number of Wet Diapers a Day: ea feeding Number of BM a Day: 6 or more, yellow, seedy Breast/Nipple Condition Breast Information: Breasts are symmetrical with rounded lower quadrants, intramammary distance is less than 1.5 inches. No erythema. Nipples are supple, everted prior to feeding. Nipple exquisitely tender; no cracks/blisters noted Mom describes pain as constant, burning, throbbing No fevers, no breast redness/tenderness Breast Shape: Round Engorgement: No Maternal Nipple Condition - Left: Common Nipple Maternal Nipple Condition - Right: Common Nipple Sore Nipples: Yes Interventions for Sore Nipples: Lansinoh/Nipple Cream, Soothies/Hydrogel Pads and Other (silverettes) Baby Assessment Skin: Normal Tongue/frenulum: Normal/elastic Palate: Average Lips: Relaxed Jaw Alignment: Symmetrical Mucosa: [place], moist Onsite Observation Pre-Feed weight: 3.616 kg Post-Feed weight: 3.698 kg Milk Transferred (mL): 82 Position: Football Attachment/latch-on achieved: Easily Suck pattern: Suck burst and normal rest Swallow: Audible, consistent and Gulping Behavior following feed: Alert, content Pre-Nursing Left Nipple: Within Normal Limits Pre-Nursing Right Nipple: Within Normal Limits Post-Nursing Left Nipple: Within Normal Limits Post-Nursing Right Nipple: Within Normal Limits Assessments/Interventions Assessments/Interventions: observation: Babe latches easily to mom's left breast in cross cradle hold and nurses strongly with audible swallows for 10 minutes. This side not too painful. Babe then latches easily to mom's right breast, more painful for mom but mom able to tolerate pain with depth of latch. Both nipples are nicely rounded after nursing and very similar in shape as prior to nursing. Total milk transferred 82ml and then baby declines relatching to right breast. Baby has a slight lip tie, but able to flange lip during session. Discussed with mom her symptoms most closely match that of nipple thrush, even without any signs in baby Plan to treat with OTC Clotrimazole after feedings up to 8 times/day; treat until symptoms are gone pllus 2 weeks. If not showing signs of resolution in 48 hours, discuss with OB Rx medication to treat thrush. sooner if she is getting worse. If continue to use Silverettes, need to watch daily to prevent reinfection Breast shells discussed for comfort of nipples while healing. Ok to give bottle of EBM if needed due to pain with nursing. Discussed ok to let him go longer at night if he is sleeping as he is gaining weight well. Education provided: Early feeding cues to maximize timing of latching, Asymmetric latch technique for wide/deep latch to increase milk, Transfer for baby and increase comfort for mom, Supply/demand nature of milk supply, Sore nipple treatment options and Pumping for milk management Follow-Up Suggested follow up: Appointment as needed Time Spent Time spent with patient (min): 60 Meds Home Medications and Allergies Home Medications ?Medication ?Instructions ?Recorded ?Confirmed ?Type [id number] 3-fat com #1 27 1 cap PO DAILY 05/01/24 10/10/24 History mg-1 mg-300 mg capsule Allergies Allergy/AdvReac Type Severity Reaction Status Date / Time codeine Allergy Intermediate Confusion Verified 10/10/24 09:29
== END 2024-10-16 12:02 | disposition home or self-care (01) ==
LOC: OB LAC 12:02
PROVIDERS: Visit Provider Obstetrics & Gynecology
DX: Z39.1 Encounter for care and examination of lactating mother (principal)
CPT/HCPCS: G0463

== ENCOUNTER 2024-10-18 12:08 | Outpatient (CLI) | payer OTHER, SELFPAY | END 2024-10-18 12:09 | disposition home or self-care (01) | LOC: NFLDREF 12:51 | PROVIDERS: Visit Provider Obstetrics & Gynecology | DX: O91.02 Infection of nipple associated with the puerperium (principal); B37.89 Other sites of candidiasis; Z39.2 Encounter for routine postpartum follow-up | CPT/HCPCS: 87070; 87186 ==

== ENCOUNTER 2025-02-12 15:39 | Outpatient (CLI) | payer OTHER, SELFPAY ==
[2025-02-12 21:41] LABS: Bacterial Vaginosis* Negative (Negative); Candida glab/krus NOT DETECTED (No Detected)
== END 2025-02-12 15:40 | disposition home or self-care (01) ==
LOC: NFLDREF 15:39
PROVIDERS: Visit Provider Advanced Practice Midwife
DX: R10.2 Pelvic and perineal pain (principal)
CPT/HCPCS: 81513; 87481; 87661